=== PATIENT | female | born 1985 | race Caucasian/White ===

== ENCOUNTER 2023-06-19 11:02 | Outpatient (REF) | payer MEDICAID, OTHER, SELFPAY ==
[2023-06-19 13:10] LABS: Appearance Urine Clear; Color Urine Yellow; Glucose Urine UA Negative (Negative); Leukocyte Esterase Urine Moderate (2+) (Negative); MANUAL DIFF FLAG NO; Nitrite Urine Negative (Negative); Specific Gravity - Urine 1.015 (1.005-1.025); UMIC TRIGGER UA YES; Urine Blood Trace (Negative); Urine Ketones Negative (Negative); Urine Protein Negative (Neg-Trace)
[2023-06-19 13:17] LABS: Bacteria Urine None Seen (None Seen); Hyaline Casts Urine 0-2 /LPF (0-2)
[2023-06-19 13:35] LABS: Basophils Percent Auto 0.3 % (0-2); Eosinophils Absolute Auto 0.1 X10*3/uL (0.0-0.4); Eosinophils Percent Auto 0.5 % (0-4); Hematocrit 43.8 % (37.0-47.0); Hemoglobin 14.4 g/dl (12.0-16.0); Imm Gran Abs Auto 0.04 X10*3/uL (0.00-0.03); Imm Gran Pct Auto 0.4 % (0.0-0.4); Lymphocytes Absolute Auto 3.1 X10*3/uL (1.2-4.9); Lymphocytes Percent Auto 34.2 % (20-40); Mean Corpuscular HGB Conc 32.9 g/dl (31.0-35.0); Mean Corpuscular Hemoglobin 28.6 pg (27.0-33.0); Mean Corpuscular Volume 87.1 fL (80.0-98.0); Mean Platelet Volume 9.4 fL (9.4-12.3); Monocytes Absolute Auto 0.9 X10*3/uL (0.1-1.2); Monocytes Percent Auto 9.8 % (2-11); Neutrophils Percent Auto 54.8 % (45-73); Platelet Count 405 X10*3/uL (160-400); Red Blood Count 5.03 X10*6/uL (4.20-5.50); Red Cell Distribution Width 12.6 % (11.0-16.0); White Blood Count 9.2 X10*3/uL (4.8-10.8)
[2023-06-19 15:12] LABS: CT PCR NOT DETECTED (Not Detect.); NG PCR NOT DETECTED (Not Detect.)
[2023-06-19 15:21] LABS: Estimated Average Glucose 103 mg/dL; Hemoglobin A1c % 5.2 %
[2023-06-19 15:32] LABS: Microalbum/Creatinine Ratio Ur 16.5 ug/mg cr
[2023-06-20 02:15] LABS: Ferritin 43 ng/mL (10-250); TSH reflex Free T4 0.79 uIU/mL (0.32-4.0)
[2023-06-20 02:16] LABS: Anion Gap 12 (12-20)
[2023-06-20 02:21] LABS: Alanine Aminotransferase 13 U/L (0-31); Albumin Level 4.3 g/dL (3.5-5.0); Alkaline Phosphatase 81 U/L (39-117); Aspartate Amino Transferase 16 U/L (5-31); Bilirubin Total 0.7 mg/dL (0.0-1.0); Blood Urea Nitrogen 10 mg/dL (9-16); Calcium 8.8 mg/dL (8.4-10.2); Carbon Dioxide 25 mmol/L (22-29); Chloride 105 mmol/L (96-108); Cholesterol 225 mg/dL; Estimated Glomerular Filt Rate > 60; Glucose Random 95 mg/dL (60-115); HDL Cholesterol 48 mg/dL; Iron 152 mcg/dL (30-160); LDL Cholesterol Calculated 153 mg/dl; Percent Iron Saturation 46 % (15-50); Potassium 3.9 mmol/L (3.3-5.1); Sodium 138 mmol/L (135-145); Total Iron Binding Capacity 328 mcg/dL (228-428); Total Protein 7.8 g/dL (6.5-8.0); Triglycerides 121 mg/dL; Unsaturated Iron Binding 176 ug/dL
[2023-06-20 05:18] LABS: ~HepC Num1 0.08 S/CO (0.00-0.79); ~Hepatitis C Antibody Nonreactive (Nonreactive)
[2023-06-20 05:20] LABS: HBS Num1 0.03 mIU/mL (0-7.99); HBsAGNum1 0.34 S/CO (0.00-0.99); HIV AB/AG Nonreactive (Nonreactive); HIV Num 1 0.05 S/CO (0.00-0.99); Hepatitis B Core Antibody Nonreactive (Nonreactive); Hepatitis B Surface Antigen Negative (Negative); ~Hepatitis B Surface Antibody NONREACTIVE (Nonreactive)
[2023-06-21 08:16] LABS: Syphilis Screen Nonreactive (Nonreactive)
[2023-06-22 02:03] LABS: TS Negative Control Passed; TS Panel A 1; TS Panel B 1; TS Positive Control Passed; TSpotTB Negative (Negative)
== END 2023-06-19 11:03 | disposition home or self-care (01) ==
LOC: HO.HHCL 11:02
PROVIDERS: Visit Provider Student in an Organized Health Care Education/Training Program
DX: Z00.00 Encounter for general adult medical examination without abnormal findings (principal); Z11.4 Encounter for screening for human immunodeficiency virus [HIV]; Z11.3 Encounter for screening for infections with a predominantly sexual mode of transmission; Z11.1 Encounter for screening for respiratory tuberculosis
CPT/HCPCS: 0353U; 80053; 80061; 81001; 82043; 82728; 83036; 83540; 84443; 85025; 86481; 86704; 86706; 86780; 86803; 87340; 87389

== ENCOUNTER 2023-07-10 11:52 | Outpatient (REF) | payer MEDICAID, OTHER, SELFPAY ==
[2023-07-17 04:14] LABS: HPV mRNA E6/E7 rflx Not Detected (Not Detected)
== END 2023-07-10 11:53 | disposition home or self-care (01) ==
LOC: HO.HHCLNP 11:52
PROVIDERS: Visit Provider Advanced Practice Midwife
DX: Z12.4 Encounter for screening for malignant neoplasm of cervix (principal); Z11.51 Encounter for screening for human papillomavirus (HPV)
CPT/HCPCS: 87624; 88142

== ENCOUNTER 2023-07-11 10:32 | Outpatient (REF) | payer MEDICAID, SELFPAY | END 2023-07-11 10:33 | disposition home or self-care (01) | LOC: HO.HHCLNP 10:32 | PROVIDERS: Visit Provider Advanced Practice Midwife | DX: Z13.89 Encounter for screening for other disorder (principal) ==

== ENCOUNTER 2023-07-16 07:53 | Outpatient (REF) | payer MEDICAID, OTHER, SELFPAY ==
--- NOTE | ~2023-07-16 | CT_ITS ---
EXAMINATION: CT ANGIOGRAM ABDOMEN AND PELVIS CLINICAL INFORMATION: Right renal mass COMPARISON: None available. TECHNIQUE: Multiple axial images were obtained through the abdomen and pelvis following the administration of 80 mL of Omnipaque 350 intravenous contrast. Maximum intensity projection images were produced on the acquisition workstation under concurrent physician supervision and reviewed. This CT examination was performed using dose optimization techniques as appropriate, variously including the following: *Automated exposure control *Adjustment of mA and/or kV according to patient size (this includes techniques or standardized protocols for targeted exams where dose is matched to indication/reason for exam; i.e. extremities or head) *Use of iterative reconstruction technique DLP: 285 mGy-cm FINDINGS: The abdominal aorta is normal in caliber. The celiac artery is patent. The superior mesenteric and inferior mesenteric arteries are patent. Single right renal artery is patent. There is an early bifurcation. Single left renal artery is patent. The nephrograms are symmetric. The iliofemoral arteries are patent and normal in caliber. The lung bases are clear. The liver is normal in attenuation. No discrete mass or ductal dilatation. The gallbladder appears normal. There is no discrete pancreatic mass or ductal dilatation. The spleen appears normal. There is no adrenal mass. Symmetric nephrograms. Moderate bilateral hydroureteronephrosis with distended urinary bladder. No ureterolithiasis. No nephrolithiasis. No discrete renal mass. There is a focal area of cortical thinning in the lateral aspect of the mid to lower kidney which could which could be related to prior infection or trauma. The urinary bladder is distended. No discrete visible bladder mass. No bladder calculus. The uterus and adnexa are unremarkable. There is no adenopathy. The small bowel is normal in caliber. No mesenteric mass or fluid. The large bowel is normal in caliber. No inflammatory changes or focal bowel wall thickening. No significant abdominal wall hernia. No suspicious osseous lesions. CT/CT angio abdomen pelvis IMPRESSION: No discrete right renal mass is seen. There is focal scarring in the lateral aspect of the right kidney which may be posttraumatic or postinfectious. Moderate bilateral hydroureteronephrosis with distended urinary bladder. No discrete obstructing mass or calculus. No aortic or renal artery aneurysm. Fleischner guidelines were followed.
[2023-07-16] MEDS: iohexoL 350 MG/ML 100 ML INFUS..BTL IV (08:37)
== END 2023-07-16 07:54 | disposition home or self-care (01) ==
LOC: HO.CT 07:53
PROVIDERS: PCP Student in an Organized Health Care Education/Training Program; Visit Provider Student in an Organized Health Care Education/Training Program
DX: N28.89 Other specified disorders of kidney and ureter (principal)
CPT/HCPCS: 74174; Q9967

== ENCOUNTER 2023-07-22 07:38 | Outpatient (REF) | payer MEDICAID, OTHER, SELFPAY ==
--- NOTE | ~2023-07-22 | US_ITS ---
EXAMINATION: US THYROID CLINICAL INFORMATION: History of thyroid nodules. COMPARISON: None available. TECHNIQUE: Linear transducer estrada-scale and color Doppler examination with attention to the region of the thyroid. FINDINGS: SIZE: Measurements of the thyroid lobes and nodules are given in sagittal, anteroposterior and transverse dimensions respectively. Right Thyroid Lobe: 5.9 x 1.7 x 1.6 cm, volume 8.4 mL. Parenchyma: The gland echotexture is homogeneous. Thyroid vascularity is normal. Left Thyroid Lobe: 6.1 x 1.5 x 1.8 cm, volume 8.6 mL. Parenchyma: The gland echotexture is homogeneous. Thyroid vascularity is normal. Isthmus: 0.5 cm in maximum AP dimension. No focal thyroid nodule is seen. NODES: No lymphadenopathy is seen in the tissue surrounding the thyroid gland. US/US thyroid IMPRESSION: No suspicious thyroid nodules. ACR TI-RADS RECOMMENDATION REFERENCE: Ultrasound-guided fine-needle aspiration, followup ultrasound, no further follow up. * TR1 (0 point) and TR2 (2 points): No FNA or follow up. * TR3 (3 points): FNA if more than or equal to 2.5 cm in maximum dimension, followup ultrasound in 1, 3 and 5 years if 1.5 to 2.4 cm in maximum dimension. * TR4 (4-6 points): FNA if more than or equal to 1.5 cm in maximum dimension, followup ultrasound in 1, 2, 3 and 5 years if 1 to 1.4 cm in maximum dimension. * TR5 (more than or equal to 7 points): FNA if more than or equal to 1 cm in maximum dimension, followup ultrasound every year for 5 years if 0.5 to 0.9 cm in maximum dimension. * TR3, TR4 or TR5 nodules that are below the size threshold for followup receive no follow up.
--- NOTE | ~2023-07-22 | MM_ITS ---
EXAMINATION: MM SCREENING DIGITAL BREAST TOMOSYNTHESIS, BILATERAL CLINICAL INFORMATION: Screening. Asymptomatic. COMPARISON: Mammography: This is a baseline study. TECHNIQUE: Digital breast tomosynthesis is performed in both the craniocaudal and mediolateral oblique views along with computer-aided detection (CAD). Synthesized 2D images are generated from the tomosynthesis. FINDINGS: The breasts are heterogeneously dense, which may obscure small masses (ACR BI-RADS breast composition Category c). There are no significant masses, abnormal calcifications, or other abnormalities. MM/MM tomosynthesis screening BI IMPRESSION: No mammographic evidence of malignancy. ASSESSMENT: BI-RADS BI-RADS 1 - Negative RECOMMENDATION: Routine annual mammography screening. 1 year F/U This examination should not preclude the clinical evaluation of a suspicious palpable abnormality. This patient's information was entered into a reminder system with a target due date for their next mammogram.
== END 2023-07-22 07:39 | disposition home or self-care (01) ==
LOC: HO.MAMMO 07:38
PROVIDERS: PCP Student in an Organized Health Care Education/Training Program; Visit Provider Student in an Organized Health Care Education/Training Program
DX: Z12.31 Encounter for screening mammogram for malignant neoplasm of breast (principal); E04.1 Nontoxic single thyroid nodule
CPT/HCPCS: 76536; 77063; 77067

== ENCOUNTER → 2023-07-22 07:45 | Outpatient (BNV) | payer SELFPAY | PROVIDERS: PCP Student in an Organized Health Care Education/Training Program; Visit Provider Radiology Diagnostic Radiology | DX: Z12.31 Encounter for screening mammogram for malignant neoplasm of breast (principal) | CPT/HCPCS: 77063; 77067 ==

== ENCOUNTER 2023-07-31 13:52 | Outpatient (REF) | payer MEDICAID, OTHER, SELFPAY ==
--- NOTE | ~2023-07-31 | US_ITS ---
EXAMINATION: US PELVIS CLINICAL INFORMATION: Dysmenorrhea COMPARISON: None available. TECHNIQUE: Ultrasound of the pelvis is performed using both transabdominal and transvaginal transducers along with Doppler. Transvaginal imaging is performed due to inadequate visualization transabdominally. FINDINGS: Uterus: The uterus is anteverted and measures 9.3 x 3.6 x 5.3 cm. No discrete lesion The double wall endometrial thickness is 15 mm. The uterus is smooth in contour and has normal myometrial echogenicity. No visible fibroid. Nabothian cysts. Adnexa: Both ovaries are visualized. There is normal color flow to the adnexa. There is no ovarian torsion. There is no pelvic ascites or fluid collection. Both ovaries measure approximately 3 mL in volume. US/US pelvic and transvaginal IMPRESSION: Normal exam.
== END 2023-07-31 13:53 | disposition home or self-care (01) ==
LOC: HO.US 13:52
PROVIDERS: PCP Student in an Organized Health Care Education/Training Program; Visit Provider Advanced Practice Midwife
DX: N94.6 Dysmenorrhea, unspecified (principal)
CPT/HCPCS: 76830; 76856

== ENCOUNTER 2023-08-23 08:19 | Outpatient (REF) | payer MEDICAID, OTHER, SELFPAY ==
[2023-08-23 11:19] LABS: MANUAL DIFF FLAG NO
[2023-08-23 11:38] LABS: Basophils Percent Auto 0.4 % (0-2); Eosinophils Absolute Auto 0.1 X10*3/uL (0.0-0.4); Eosinophils Percent Auto 0.9 % (0-4); Hematocrit 41.6 % (37.0-47.0); Hemoglobin 13.9 g/dl (12.0-16.0); Imm Gran Abs Auto 0.02 X10*3/uL (0.00-0.03); Imm Gran Pct Auto 0.2 % (0.0-0.4); Lymphocytes Percent Auto 36.2 % (20-40); Mean Corpuscular HGB Conc 33.4 g/dl (31.0-35.0); Mean Corpuscular Hemoglobin 29.1 pg (27.0-33.0); Mean Platelet Volume 9.7 fL (9.4-12.3); Monocytes Absolute Auto 0.8 X10*3/uL (0.1-1.2); Monocytes Percent Auto 9.6 % (2-11); Neutrophils Absolute Auto 4.3 x10*3/uL (2.0-8.3); Neutrophils Percent Auto 52.7 % (45-73); Platelet Count 418 X10*3/uL (160-400); Red Blood Count 4.78 X10*6/uL (4.20-5.50); Red Cell Distribution Width 12.3 % (11.0-16.0); White Blood Count 8.2 X10*3/uL (4.8-10.8)
== END 2023-08-23 08:20 | disposition home or self-care (01) ==
LOC: HO.HHCL 08:19
PROVIDERS: Visit Provider Student in an Organized Health Care Education/Training Program
DX: N28.89 Other specified disorders of kidney and ureter (principal); Z13.0 Encounter for screening for diseases of the blood and blood-forming organs and certain disorders involving the immune mechanism
CPT/HCPCS: 36415; 85025

== ENCOUNTER 2023-09-16 19:36 | Emergency (ER) | payer MEDICAID, OTHER, SELFPAY ==
[2023-09-16 19:50] VITALS: BP 183/105; PULSE 86; RESP 16; TEMP 36.8; O2SAT 99; BMI 31.7
[2023-09-16 20:03] VITALS: BP 153/84; PULSE 86; RESP 17; TEMP 36.7; O2SAT 98
--- NOTE | 2023-09-16 20:59 | ED.DENTAL ---
HPI - Dental/Oral General Chief complaint: Dental/Oral Stated complaint: high bp, bleeding from tooth Time Seen by Provider: 09/16/23 20:38 Source: patient Mode of arrival: ambulatory Limitations: no limitations History of Present Illness HPI Narrative: Patient apparently had 2 teeth extraction earlier today since the patient with bleeding noticed to have high blood pressure on arrival 183/105 with no prior history of hypertension not taking any aspirin or any blood thinner, repeat blood pressure was 153/84 Related Data Allergies Allergy/AdvReac Type Severity Reaction Status Date / Time No Known Allergies Allergy Verified 09/16/23 21:02 Review of Systems Review of Systems: Yes all other systems are reviewed and are negative [facility] Social History Social History Advance Directives: No Advance Directives Information Provided: No Physical Exam Vital Signs: Vital Signs: Last Vital Signs Temp 98.0 F 09/16/23 20:03 Pulse 83 09/16/23 22:12 Resp 18 09/16/23 22:12 BP 153/89 H 09/16/23 22:12 Pulse Ox 99 09/16/23 22:12 O2 Del Method Room Air 09/16/23 20:03 BMI result Body Mass Index 31.7 Appearance: Alert. Oriented X3. No acute distress. ENT: Pharynx normal. Oral Mucosa moist Neck: Normal inspection. Neck supple. CVS: Normal heart rate and rhythm. Pulses normal. Respiratory: No respiratory distress. Equal air entry bilateral, Abdomen: Soft and nontender. Bowel sounds are present, Skin: Skin warm and dry. Normal skin color. Normal skin turgor. Neuro: Oriented X 3. HEENT: Teeth image: 1. Extracted tooth with active gum bleeding Medications Administered Discontinued Medications Generic Name Dose Route Start Last Admin Trade Name Freq PRN Reason Stop Dose Admin Tranexamic Acid 500 mg 09/16/23 21:02 09/16/23 22:14 Tranexamic Acid 1,000 Mg/10 Ml Vial INTRANASAL 09/16/23 21:03 500 mg ONCE ONE Administration Medical Decision Making Medical Decision Making [facility] Narrative: Patient with bleeding from the gum after post extraction bleeding stopped after using TXA Discharge Plan Discharge Clinical Impression: Gums, bleeding Patient Disposition: Home, Self-Care Instructions: Tooth Extraction (DC) Additional Instructions: Local care as advised Use cold water/ice Or use tea bags Follow up with your dentist Interventions: ED Discharge Assessment Last Done: 09/16/23 22:15 Discharge Date/Time: 09/16/23 22:15
[2023-09-16 22:12] VITALS: BP 153/89; PULSE 83; RESP 18; O2SAT 99
[2023-09-16] MEDS: Tranexamic Acid 1,000 MG/10 ML VIAL 500 MG INTRANASAL (22:14)
--- NOTE | 2023-09-16 22:14 | PC.NURSE ---
med given by Provider
== END 2023-09-16 22:15 | disposition home or self-care (01) ==
PROVIDERS: Emergency Provider Internal Medicine
DX: K91.840 Postprocedural hemorrhage of a digestive system organ or structure following a digestive system procedure (principal)
CPT/HCPCS: 99283; 99284

== ENCOUNTER 2024-01-24 09:25 | Outpatient (REF) | payer MEDICAID, OTHER, SELFPAY ==
[2024-01-24 11:25] LABS: MANUAL DIFF FLAG NO
[2024-01-24 11:43] LABS: Basophils Percent Auto 0.4 % (0-2); Eosinophils Absolute Auto 0.1 X10*3/uL (0.0-0.4); Eosinophils Percent Auto 1.3 % (0-4); Hemoglobin 14.3 g/dl (12.0-16.0); Imm Gran Abs Auto 0.03 X10*3/uL (0.00-0.03); Imm Gran Pct Auto 0.3 % (0.0-0.4); Lymphocytes Absolute Auto 3.4 X10*3/uL (1.2-4.9); Lymphocytes Percent Auto 35.5 % (20-40); Mean Corpuscular HGB Conc 33.3 g/dl (31.0-35.0); Mean Corpuscular Hemoglobin 29.2 pg (27.0-33.0); Mean Corpuscular Volume 87.9 fL (80.0-98.0); Mean Platelet Volume 9.3 fL (9.4-12.3); Monocytes Percent Auto 10.3 % (2-11); Neutrophils Percent Auto 52.2 % (45-73); Platelet Count 401 X10*3/uL (160-400); Red Blood Count 4.89 X10*6/uL (4.20-5.50); Red Cell Distribution Width 12.8 % (11.0-16.0); White Blood Count 9.5 X10*3/uL (4.8-10.8)
[2024-01-24 12:09] LABS: Alanine Aminotransferase 13 U/L (0-31); Albumin Level 4.2 g/dL (3.5-5.0); Alkaline Phosphatase 81 U/L (39-117); Anion Gap 13 (12-20); Aspartate Amino Transferase 15 U/L (5-31); Bilirubin Total 0.4 mg/dL (0.0-1.0); Blood Urea Nitrogen 13 mg/dL (9-16); Calcium 9.3 mg/dL (8.4-10.2); Carbon Dioxide 26 mmol/L (22-29); Chloride 107 mmol/L (96-108); Cholesterol 222 mg/dL (<200); Estimated Glomerular Filt Rate > 60; Glucose Random 99 mg/dL (60-115); HDL Cholesterol 50 mg/dL (>40); LDL Cholesterol Calculated 147 mg/dL (<100); Potassium 4.5 mmol/L (3.3-5.1); Sodium 141 mmol/L (135-145); Total Protein 7.8 g/dL (6.5-8.0); Triglycerides 127 mg/dL (<150)
[2024-01-24 12:11] LABS: TSH reflex Free T4 0.58 uIU/mL (0.32-4.0); Vitamin D 25-OH Total 36.4 ng/mL (>30)
== END 2024-01-24 09:26 | disposition home or self-care (01) ==
LOC: HO.HHCL 09:25
PROVIDERS: Visit Provider Student in an Organized Health Care Education/Training Program
DX: L65.9 Nonscarring hair loss, unspecified (principal); D75.839 Thrombocytosis, unspecified; E78.5 Hyperlipidemia, unspecified
CPT/HCPCS: 36415; 80053; 80061; 82306; 84443; 85025

== ENCOUNTER 2024-07-28 07:10 | Outpatient (REF) | payer MEDICAID, OTHER, SELFPAY ==
--- NOTE | ~2024-07-28 | MM_ITS ---
EXAMINATION: MM SCREENING DIGITAL BREAST TOMOSYNTHESIS, BILATERAL CLINICAL INFORMATION: Screening. Asymptomatic. COMPARISON: Mammography: Comparison is made with available priors TECHNIQUE: Digital breast tomosynthesis is performed in both the craniocaudal and mediolateral oblique views along with computer-aided detection (CAD). Synthesized 2D images are generated from the tomosynthesis. FINDINGS: The breasts are heterogeneously dense, which may obscure small masses (ACR BI-RADS breast composition Category c). There are no significant masses, abnormal calcifications, or other abnormalities. MM/MM tomosynthesis screening BI IMPRESSION: No mammographic evidence of malignancy. ASSESSMENT: BI-RADS BI-RADS 1 - Negative RECOMMENDATION: Routine annual mammography screening. 1 year F/U This examination should not preclude the clinical evaluation of a suspicious palpable abnormality. This patient's information was entered into a reminder system with a target due date for their next mammogram. Electronically signed by: Akosua Israel DO 08/21/2024 12:45 PM EDT
== END 2024-07-28 07:11 | disposition home or self-care (01) ==
LOC: HO.MAMMO 07:10
PROVIDERS: PCP Student in an Organized Health Care Education/Training Program; Visit Provider Student in an Organized Health Care Education/Training Program
DX: Z12.31 Encounter for screening mammogram for malignant neoplasm of breast (principal)
CPT/HCPCS: 77063; 77067

== ENCOUNTER → 2024-07-28 07:30 | Outpatient (BNV) | payer SELFPAY | PROVIDERS: PCP Student in an Organized Health Care Education/Training Program; Visit Provider Internal Medicine | DX: Z12.31 Encounter for screening mammogram for malignant neoplasm of breast (principal) | CPT/HCPCS: 77063; 77067 ==

== ENCOUNTER 2024-09-29 08:00 | Outpatient (REF) | payer MEDICAID, SELFPAY ==
[2024-09-29 11:52] LABS: Hematocrit 42.1 % (37.0-47.0); Mean Corpuscular HGB Conc 33.3 g/dl (31.0-35.0); Mean Corpuscular Hemoglobin 29.9 pg (27.0-33.0); Mean Corpuscular Volume 89.8 fL (80.0-98.0); Mean Platelet Volume 9.6 fL (9.4-12.3); Platelet Count 367 X10*3/uL (160-400); Red Blood Count 4.69 X10*6/uL (4.20-5.50); Red Cell Distribution Width 12.7 % (11.0-16.0); White Blood Count 7.5 X10*3/uL (4.8-10.8)
[2024-09-29 12:14] LABS: Estimated Average Glucose 108 mg/dL; Hemoglobin A1C 126.9235 umol/L; Hemoglobin A1c % 5.4 % (<6.0); Total Hemoglobin (HGBA1C) 3611.6768 umol/L
[2024-09-29 12:46] LABS: Creatinine Urine 57.49 mg/dL; Microalbum/Creatinine Ratio Ur 13.9 ug/mg cr (<30)
[2024-09-29 12:53] LABS: Syphilis Screen Nonreactive (Nonreactive)
[2024-09-29 12:54] LABS: HBS Num1 2.61 mIU/mL (0-7.99); HBc Num1 0.14 S/CO (0.00-0.79); HBsAGNum1 0.31 S/CO (0.00-0.99); HIV AB/AG Nonreactive (Nonreactive); HIV Num 1 0.05 S/CO (0.00-0.99); Hepatitis B Core Antibody Nonreactive (Nonreactive); Hepatitis B Surface Antigen Negative (Negative); ~HepC Num1 0.11 S/CO (0.00-0.79); ~Hepatitis B Surface Antibody NONREACTIVE (Nonreactive); ~Hepatitis C Antibody Nonreactive (Nonreactive)
[2024-09-29 12:59] LABS: Alanine Aminotransferase 13 U/L (0-31); Albumin Level 4.2 g/dL (3.5-5.0); Alkaline Phosphatase 60 U/L (39-117); Anion Gap 11 (12-20); Aspartate Amino Transferase 26 U/L (5-31); Bilirubin Total 0.8 mg/dL (0.0-1.0); Blood Urea Nitrogen 14 mg/dL (9-16); Calcium 9.1 mg/dL (8.4-10.2); Carbon Dioxide 25 mmol/L (22-29); Chloride 108 mmol/L (96-108); Cholesterol 232 mg/dL (<200); Estimated Glomerular Filt Rate > 60; Glucose Random 94 mg/dL (60-115); HDL Cholesterol 59 mg/dL (>40); LDL Cholesterol Calculated 160 mg/dL (<100); Potassium 4.2 mmol/L (3.3-5.1); Sodium 140 mmol/L (135-145); Total Protein 7.6 g/dL (6.5-8.0); Triglycerides 66 mg/dL (<150)
[2024-09-29 13:02] LABS: TSH reflex Free T4 0.74 uIU/mL (0.32-4.0)
[2024-09-29 14:00] LABS: CT PCR NOT DETECTED (Not Detect.); NG PCR NOT DETECTED (Not Detect.)
== END 2024-09-29 08:01 | disposition home or self-care (01) ==
LOC: HO.HHCL 08:00
PROVIDERS: Visit Provider Student in an Organized Health Care Education/Training Program
DX: Z00.00 Encounter for general adult medical examination without abnormal findings (principal)
CPT/HCPCS: 36415; 80053; 80061; 82043; 82570; 83036; 84443; 85027; 86704; 86706; 86780; 86803; 87340; 87389; 87491; 87591

== ENCOUNTER 2025-04-09 12:35 | Outpatient (REF) | payer MEDICAID, SELFPAY ==
--- OUTSIDE RECORDS SUMMARY | 2025-04-09 12:37 | XMS_ITS | Encounter Summary ---
Author Organization [facility] Address [address] [place] [address] Care Team Providers Care Barrel Rifler Button Name Role Phone Shantelle Cunningham Primary Care Provider [phone] Encounter Details Date Type Department Care Team (Late Contact Info) Description 09/05/2023 Orders Only [facility] [address] [place] [address] Guido Watson MD [address] [place] [address] Social History Tobacco Use Types Packs/Day Years Used Date Smoking Tobacco: Never Assessed Comments Unknown Sex and Gender Information Value Date Recorded Sex Assigned at Female 09/11/2023 8:40 AM EDT Legal Sex Female 2:46 PM EDT Gender Identity Female 09/11/2023 8:40 AM EDT Sexual Orientation Other 09/11/2023 8: 40 AM EDT documented as of this encounter Plan of Treatment Upcoming Encounters Date Type Department Care Team (Late Contact Info) Description 06/16/2025 3:30 PM EDT Follow-Up [facility] [address] [place] [address] Log Data Technician: Mona Edwards PA [address] [place] [id number] documented as of this encounter Visit Diagnoses Not on filedocumented in this encounter Care Teams Barrel Rifler Button Relationship Specialty Start Date End Date Shantelle Cunningham PCP - General 07/18/23 documented as of this encounter
--- OUTSIDE RECORDS SUMMARY | 2025-04-09 12:37 | XMS_ITS | Clinical Summary ---
Author Organization [employer] Address [address] [facility] [address] [place] [address] Care Team Providers Care Stonemason Apprentice Name Role Phone Shantelle Cunningham MD Primary Care Pro vider Allergies No known active allergies Medications biotin 10 MG tabletIndicati ons:Hair loss Take 1 tablet (10 mg) by mouth Once per day. 90 tablet 1 04/09/20 25 Active omega-3 1000 MG capsule capsule Take 1 capsule (1,000 mg) by mouth 2 times daily. 180 capsule 1 04/09/20 25 026 Active biotin 3 MG tablet Take 1 tablet (3 mg) by mouth in the morning. 90 tablet 12/23/19 24 025 Discontinued(Ot her) omega-3 1000 MG capsule capsule Take 1 capsule (1,000 mg) by mouth 2 times daily. 180 capsule 1 10/06/20 24 025 Discontinued(Re order (will not trigger notification to Pharmacy)) Active Problems Problem Noted Date Diagnosed Date Overweight 08/04/2024 Skin lesions 08/04/2024 Hypertension 12/24/2023 Hydroureteronephrosis 12/24/2023 Hyperlipidemia 07/15/2023 Assessment & Plan (08/28/2023 8:13 PM EDT): 06/2023 Total ch 225, trig 121, LDL 153, HDL 48 ASCVD 1.3 % ( no indication x statins) -life style changes advised -referred to correctional security officer---has apt 09/30/2023 -repeat fasting lipids in 6 mo and chem-aprox 01/2024 Assessment & Plan (07/15/2023 7:04 PM EDT): 06/2023 Total ch 225, trig 121, LDL 153, HDL 48 ASCVD 1.3 % ( no indication x statins) -life style changes advised -referred today to correctional security officer -repeat fasting lipids in 6 mo and chem-aprox 01/2024 Health care maintenance 06/17/2023 Assessment & Plan (08/28/2023 8:12 PM EDT): -Quantiferon 06/2023 Neg -pap smear 07/2023 Neg/HPV neg -MM 07/2023 : The breasts are heterogeneously dense, which may obscure small masses composition Category c). BI-RADS BI-RADS 1 - Negative .Mauricio Godfrey life time risk which is 10.70 % so no indication for further testing -vaccines: covid 19 never and refusing , tdap offer and refusing, hep B not immune-refusing vaccine offered today, refusing flu vaccine ---- -noted 9<---06/2023 CBC w platelets slight elevated to 418<--- 405 w normal hb and normal iron panel -will repeat CBC in 3 to 6 months -EGD 10/2021:chronic non atrophic gastritis possible H pylori associated --no path report but pt reports was told not to have h pylori on that test -denies upper GI symptoms -ophthalmology referral already-pd to get a call for apt Assessment & Plan (07/15/2023 7:00 PM EDT): -Quantiferon 06/2023 Neg -pap smear 03/2022 Neg per pt in [facility] -referred to Vincenzo gustafson and repeated pap smear in 07/2023 -Pd to get result -MM: never-referred already -reports apt x next week-will f result here in 6 weeks -vaccines: covid 19 never and refusing , tdap offer and refusing, hep B not immune-refusing vaccine offered today ---- -noted 06/2023 CBC w platelets slight elevated to 405 w normal hb and normal iron panel -will repeat CBC in 5 weeks -ordered today and will f result in 6 weeks -EGD 10/2021:chronic non atrophic gastritis possible H pylori associated --no path report but pt reports was told not to have h pylori on that test -denies upper GI symptoms -ophthalmology referral already-pd to get a call for apt Assessment & Plan (06/17/2023 10:39 PM EDT): -Quantiferon referred today ( hx of PPD -) -pap smear 03/2022 Neg per pt in [facility] -referred to Vincenzo ReederMM: never-referred today -vaccines: covid 19 never and refusing , tdap offer and refusing -labs x annual exam -will RTC in fasting -pt agreed to have STI testing including HIV to have for baseline ---- -EGD 10/2021:chronic non atrophic gastritis possible H pylori associated ??? --no path report --will check w pt if tested + at next visit -ophthalmology referral Resolved Problems Problem Noted Date Diagnosed Date Resolved Date Hair loss 12/24/2023 08/04/2024 Right renal mass 06/17/2023 12/24/2023 Assessment & Plan (08/28/2023 8:16 PM EDT): -From her records: Pt brought records translated in [place]og[place]ese from [place] -admitted from 10/25 to 11/10/20[facility] -right renal cancer stage I and anemia. 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 Hx of urolithiasis s/p lithotripsy in 2017 Stone of oxalate ---on cystone -US 10/2021: liquid mass detected up to 35x25 mm with signs of contents and isoechoic to renal parenchyma -CT abd/pelvis w IV contrast 09/2021: A right cystic renal mass of 30 x 27 mm is detected in the mid segment of kidney. 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 No discrete mass or ductal dilatation. The gallbladder appears normal. There is no discrete pancreatic mass or ductal dilatation. The spleen appears normal. There is no adrenal mass. Symmetric nephrograms. Moderate bilateral hydroureteronephrosis with distended urinary bladder. No ureterolithiasis. No nephrolithiasis. No discrete renal mass. There is a focal area of cortical thinning in the lateral aspect of the mid to lower kidney which could which could be related to prior infection or trauma. The urinary bladder is distended. No discrete visible bladder mass. No bladder calculus. There is no adenopathy. No discrete right renal mass is seen. There is focal scarring in the lateral aspect of the right kidney which may be posttraumatic or postinfectious. Moderate bilateral hydroureteronephrosis with distended urinary bladder. No discrete obstructing mass or calculus. No aortic or renal artery aneurysm. -referred to urologist to f hematuria and hx of renal ca --gave letter info for apt to call and schedule apt-pt will discuss w urologist about natural products from [facility] x nephrolitiasis hx ( Flaxseed oil 1200 mg daily, alpha+CRS tab daily, cystone 60 2 tab daily) that brings from [employer]. -pt reports not able to schedule apt w urologist at [facility]---[place] has sent twice referral but apparently not receiving referral ----I request today to microbial specialist to send referral again Assessment & Plan (07/15/2023 7:05 PM EDT): -From her records: Pt brought records translated in [place]ese from [place] -admitted from 10/25 to 11/10/2021 in [facility] -right renal cancer stage I and anemia. 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 Hx of urolithiasis s/p lithotripsy in 2017 Stone of oxalate ---on cystone -US 10/2021: liquid mass detected up to 35x25 mm with signs of contents and isoechoic to renal parenchyma -CT abd/pelvis w IV contrast 09/2021: A right cystic renal mass of 30 x 27 mm is detected in the mid segment of kidney. 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 -referred for CT abd/pelvis w contrast -states has apt tomorrow -will f result at her next apt here in 6 weeks Assessment & Plan (06/17/2023 10:29 PM EDT): -From her records: Pt brought records translated in [place] from [place] -admitted from 10/25 to 11/10/2021 in [facility] -right renal cancer stage I and anemia. 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 Hx of urolithiasis s/p lithotripsy in 2017 Stone of oxalate ---on cystone and kanefron meds -US 10/2021: liquid mass detected up to 35x25 mm with signs of contents and isoechoic to renal parenchyma -CT abd/pelvis w IV contrast 09/2021: A right cystic renal mass of 30 x 27 mm is detected in the mid segment of kidney. 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 -referred today to urologist -referred for CT abd/pelvis w contrast --if abnormal cr -will advise pt to hold on test -UA to r/o hematuria Obese 06/17/2023 08/04/2024 Assessment & Plan (08/28/2023 8:10 PM EDT): BMI 30.31 -Advised pt to improve diet and exercise,discussed healthy life style -referred to correctional security officer to 09/30/2023 Assessment & Plan (07/15/2023 6:54 PM EDT): BMI 30.31 -Advised pt to improve diet and exercise,discussed healthy life style -referred today to correctional security officer Assessment & Plan (06/17/2023 10:27 PM EDT): Advised pt to improve diet and exercise,discussed healthy life style -will discuss correctional security officer referral at next apt Thyroid nodule 06/17/2023 12/24/2023 Overview (12/24/2023): -thyroid nodules hx -thyroid US 07/2023: Normal Assessment & Plan (08/28/2023 8:14 PM EDT): -thyroid nodules hx -thyroid US 07/2023: Normal Assessment & Plan (07/15/2023 6:55 PM EDT): -thyroid nodules hx -referred already x thyroid US --has apt per pt x next week- will f result here in 6 weeks Assessment & Plan (06/17/2023 10:35 PM EDT): -thyroid nodules hx -referred today x thyroid US Vertigo 06/17/2023 12/24/2023 Overview (12/24/2023): Pt w symptoms of BPV-improved -advised x home head exercises -meclizine prn Assessment & Plan (08/28/2023 8:14 PM EDT): Pt w symptoms of BPV-improved -advised x home head exercises -meclizine prn Assessment & Plan (07/15/2023 6:57 PM EDT): Pt w symptoms of BPV-improved -advised x home head exercises -meclizine prn Assessment & Plan (06/17/2023 10:38 PM EDT): Pt w symptoms of BPV -advised x home head exercises -meclizine prn Chronic lower back pain 06/17/202312/03 Overview (12/24/2023): Resolved -reported as chronic lower back pain w no alarming features -referred to PT-pd to schedule apt -never=--resolve w,yoga -tylenol prn -will continue to f if no improvement w PT will refer x lumbar XR -pt will inform me if symptoms again Assessment & Plan (08/28/2023 8:13 PM EDT): Pt w chronic lower back pain w no alarming features -referred to PT-pd to schedule apt -tylenol prn -will continue to f if no improvement w PT will refer x lumbar XR Assessment & Plan (07/15/2023 6:57 PM EDT): Pt w chronic lower back pain w no alarming features -referred to PT-gave letter for pt to schedule apt -tylenol prn -will continue to f if no improvement w PT will refer x lumbar XR Assessment & Plan (06/17/2023 10:39 PM EDT): Pt w chronic lower back pain w no alarming features -referred today to PT -tylenol prn -will continue to f if no improvement w PT will refer x lumbar XR Encounters Date Type Department Care Team Description 04/09/2025 11:15 AM EDT Office Visit [address] [id number] Shantelle Cunningham MD Hyperlipidemia, unspecified hyperlipidemia type (Primary Dx); Dietary counseling; Exercise counseling; Hair loss 04/09/2025 Travel 04/08/[address] [address] Shantelle Cunningham MD chartprep 04/05/[address] [phone] Shantelle Cunningham MD Lab Orders 02/11/[address] [phone] Shantelle Cunningham MD May recall from Last 3 Months Social History Tobacco Use Types Packs/Day Years Used Date Smoking Tobacco: Never Passive Smoke Exposure: Never Smokeless Tobacco: Never Tobacco Cessation:Counseling Given: Not Answered Alcohol Use Standard Drinks/Week Comments Not Currently 0 (1 standard drink = 0.6 oz pur e alcohol) social Depression Answer Date Recorded Patient Health Questionnaire-9 Score 0 08/04/2024 Patient Health Questionnaire-9 Score 0 08/04/2024 Last PHQ-9: Questionnaire Data Not on file 0 08/04/2024 Housing Stability Answer Date Recorded What is your housing situation today? I have woo barb 08/04/[address] you li ve. Do you have problems with any of the following? None of the above 08/04/2024 Food Insecurity Answer Date Recorded Within the past 12 months, y ou worried that your food would run out before you got money to buy more: Never True 08/04/2024 Within the past 12 months,th e food you bought just didn't last and you didn't have enough money to get more: Never True 01/2024 Transportation Answer Date Recorded In the past 12 months, has l ack of transportation kept you from medical appts, meetings, work or from getting things needed for daily living? No 08/04/2024 Utilities Answer Date Recorded In the past 12 months, has t he electric, gas, oil or water company threatened to shut off services in your home? No 08/04/2024 Depression Answer Date Recorded Patient Health Questionnaire-2 Score 0 08/04/2024 Internet Access Answer Date Recorded Internet Access Q1 Yes 10/06/2024 Internet Access Q2 Not on file 10/06/2024 Comments No Sex and Gender Information Value Date Recorded Sex Assigned at Female 04/25/2023 12:11 PM EDT Legal Sex Female 11:55 AM EDT Gender Identity Female 04/25/2023 12:11 PM EDT Sexual Orientation Straight 06/17/2023 2: 10 PM EDT Last Filed Vital Signs Vital Sign Reading Time Taken Comments Blood Pressure 138/88 04/09/2025 11:19 AM EDT Pulse 78 04/09/2025 11:19 AM EDT Temperature 36.1 ??C (96.9 ??F) 04/09/2025 1 1:19 AM EDT Respiratory Rate 20 04/09/2025 11:1 9 AM EDT Oxygen Saturation 99% 04/09/2025 11: 19 AM EDT Inhaled Oxygen Concentration - - Weight 81.1 kg (178 lb 12.8 oz) 025 11:19 AM EDT Height 167 cm (5' 5.75 ) 04/09/2025 11: 19 AM EDT Body Mass Index 29.08 04/09/2025 11:19 AM EDT Plan of Treatment Health Maintenance Due Date Last Done Comments Dental Oral Exam 1983 Family Planning (PISQ) 1998 DTaP/Tdap/Td Vaccines (1 - Tdap) 2002 Hepatitis B Vaccines (1 of 3 - 19+ 3-dose series) 2002 Dental Prophylaxis 02/18/2024 08/19/2023 COVID-19 Vaccine (1 - 2023-2 5 season) 2024 Influenza Vaccine (#1) 2024 Dental X-Ray: Bitewings 08/20/2024 08/19/2023 Depression Screening 08/04/2025 08/04/2024, 08/04/2024 SDOH Screening 10/06/2025 10/06/2024 Alcohol/Substance Use Screening 04/09/2026 04/09/2025 Tobacco Screening 04/09/2026 04/09/2025 Pap Smear 07/10/2026 07/10/2023 Mammogram 07/28/2026 07/28/2024, 07/22/2023 Dental X-Ray: Full Mouth 08/20/2026 08/19/2023 Cervical Cancer Screening 07/10/2028 HPV/Cotest 07/10/2028 07/10/2023 Lipid Panel 09/29/2029 09/29/2024, 01/24/2024 Zoster Vaccines (1 of 2) 2033 RSV Patients and Patients Aged 60 years or older (1 - 1-dose 75+ series) 2058 HIV Screening Completed 09/29/2024 Hepatitis C Screening Completed 09/29/2024 HIB Vaccines Aged Out No longer eligi ble based on patient's age to complete this topic HPV Vaccines Aged Out No longer eligi ble based on patient's age to complete this topic Hepatitis A Vaccines Aged Out No long er eligible based on patient's age to complete this topic IPV Vaccines Aged Out No longer eligi ble based on patient's age to complete this topic Meningococcal Vaccine Aged Out No jolynn nannette eligible based on patient's age to complete this topic Pneumococcal Vaccine: Pediatrics (0 to 5 Years) and At-Risk Patients (6 to 49) Years) Aged Out No longer eligible b ased on patient's age to complete this topic RSV under 20 months Aged Out No longe r eligible based on patient's age to complete this topic Rotavirus Vaccines Aged Out No longer eligible based on patient's age to complete this topic Procedures Procedure Name Priority Date/Time Associated Diagnosis Comments HEPATITIS C AB W/REFL TO HCV RNA, QN, PCR Routine 09/29/2024 8:06 AM EDT Annual physical exam HIV 1/2 ANTIGEN/ANTIBODY, FOURTH GENERATION W/RFL Routine 09/29/2024 8:06 AM EDT Annual physical exam LIPID PANEL, STANDARD Routine 09/29/2024 8:06 AM EDT Annual physical exam BI MAMMOGRAM SCREENING TOMOSYNTHESIS BILATERAL Routine 07/28/2024 7:20 AM EDT PROPHYLAXIS - ADULT Routine 08/19/2023 1 1:00 AM EDT INTRAORAL - COMPLETE SERIES OF RADIOGRAPHIC IMAGES Routine 08/19/2023 11:00 AM EDT HPV MRNA E6/E7 REFLEX TO HPV 16, 18/45 Routine 07/10/2023 11:20 AM EDT PAP SMEAR Routine 07/10/2023 from Last 3 Months or Most Recently Relevant to Health Maintenance Results * Hepatitis C Antibody with Reflex to HCV, RNA, Quantitative, Real-Time PCR (09/29/2024 8:06 AM EDT) Hepatitis C Antibody Nonreactive Nonreactive [facility] Comment:Antibodies to HCV no t detected; does not exclude early acuteHCV infection. Blood Venous blood specimen / Unknown 09/29/2024 8:06 AM EDT 09/29/2024 11:33 AM EDT us Shantelle Mejia MD LAB BLOOD ORDERAB LES Final Result [facility] [address] [place] [phone] * HIV-1/2 Antigen and Antibodies, Fourth Generation, with Reflexes (09/29/2024 8:06 AM EDT) HIV AB/AG Nonreactive Nonreactive [facility] Comment:HIV-1 p24 Ag and/or HIV-1/HIV-2 Ab not detected.A test result that is nonreactive does not exclude thepossibility of exposure to or infection with HIV-1 and/orHIV-2. Nonreactive results in this assay for individualswith prior exposure to HIV-1 and/or HIV-2 may be due toantigen and antibody levels that are below the limit ofdetection of this assay.The [facility] HIV Ag/Ab Combo assay result andsupplemental assay results should be interpreted inconjunction with the patient's clinical presentation,history and other laboratory results. If the results areinconsistent with clinical evidence, additional testing issuggested to confirm the result. Blood Venous blood specimen / Unknown 09/29/2024 8:06 AM EDT 09/29/2024 11:33 AM EDT us Shantelle Mejia MD LAB BLOOD ORDERAB LES Final Result Performing Organization Address City/[facility]/ZIP Co de Phone Number [facility] [address] [place] [phone] [phone] * (ABNORMAL) Lipid Panel, Standard (09/29/2024 8:06 AM EDT) Triglycerides 66 <150 mg/dL [facility] Comment:Desirable Triglyceri de: less than 150 mg/dLBorderline High Triglyceride 150-199 mg/dLHigh Triglyceride: 200-499 mg/dLVery High Triglyceride: greater than or equal to 5OO mg/dL Cholesterol 232(H) <200 mg/dL [facility] Comment:Desirable Cholestero l: less than 200 mg/dLBorderline High Cholesterol: 200-239 mg/dLHigh Cholesterol: greater than 239 mg/dL LDL Cholesterol Calculated 160(H) <100 mg/dL [facility] Comment:Desirable LDL: less than 100 mg/dLNear Optimal/Above Optimal LDL: 110- 129 mg/dLBorderline High LDL: 130-159 mg/dLHigh LDL: 160-189 mg/dLVery High LDL: greater than or equal to 190 mg/dL HDL Cholesterol 59 >40 mg/dL [facility] Comment:Desirable HDL: great er than 40 mg/dL Note: This HDL assay may give artificially low results in patients with liver disease. Blood Venous blood specimen / Unknown 09/29/2024 8:06 AM EDT 09/29/2024 11:33 AM EDT Shantelle Mejia MD LAB BLOOD ORDERAB LES Final Result [facility] [address] [place] [phone] [phone] * BI Mammogram Screening Tomosynthesis Bilateral (07/28/2024 7:20 AM EDT) Anatomical Region Laterality Modality Breast Bilateral Mammography 07/28/2024 7:20 AM EDT Narrative 08/21/2024 12:48 PM EDT ? [facility] ? [address] ?[place] [phone] ? Mammography Report ? Signed ? Patient: Skazka,Cynthia ?MR#: [id number] ?? [id number] ? : 1985 ?Acct:[id number] ? Age/Sex: 39 / F ?ADM Date: 07/28/24 ? Loc: HO.MAMMO ? Attending Dr: Shantelle Mejia MD ? Ordering Physician: Shantelle Cunningham MD ?Re ?? sults: 1Negative ? Date of Service: 07/28/24 ?Follow Up: 1 Year From Orig ?? inal Mammogram ? Procedure(s): MM tomosynthesis screening BI ?? Accession Number(s): [id number] ? cc: Shantelle Cunningham MD ? EXAMINATION: ?? MM SCREENING DIGITAL BREAST TOMOSYNTHESIS, BILATERAL ? CLINICAL INFORMATION: ? Screening. Asymptomatic. ? COMPARISON: ?? Mammography: Comparison is made with available priors ? TECHNIQUE: ?? Digital breast tomosynthesis is performed in both the craniocaudal and ?? mediolateral oblique views along with computer-aided detection (CAD). ? Synthesized 2D images are generated from the tomosynthesis. ? FINDINGS: ?? The breasts are heterogeneously dense, which may obscure small masses ?? (ACR BI-RADS breast composition Category c). ? There are no significant masses, abnormal calcifications, or other ?? abnormalities. ? MM/MM tomosynthesis screening BI ?? IMPRESSION: ?? No mammographic evidence of malignancy. ? ASSESSMENT: ? BI-RADS BI-RADS 1 - Negative ? RECOMMENDATION: ?? Routine annual mammography screening. ? 1 year F/U ? This examination should not preclude the clinical evaluation of a ?? suspicious palpable abnormality. ? This patient's information was entered into a reminder system with a ?? target due date for their next mammogram. ? Electronically signed by: ??Akosua Israel DO ??08/21/2024 12:45 PM EDT ? Dictated By: ?Akosua Israel DO ? Signed By: ?<Electronically signed by Akosua Israel, DO in OV> ? 08/21/24 1245 ? DD/ 0720 ? TD/TT: 07/28/24 0730 ? Back Digger Operator: ? Procedure Note Donaraceli, Image - 08/21/2024 [facility] [address] [place] [address] Mammography Report Signed Patient: Cynthia CarrenoMR#: [id number] : 1985Acct:[id number] Age/Sex: 39 / FADM Date: 07/28/24 Loc: HO.MAMMO Attending Dr: Shantelle Mejia MD Ordering Physician: Shantelle Cunningham sults: 1Negative Date of Service: 07/28/24Follow Up: 1 Year From Orig inal Mammogram Procedure(s): MM tomosynthesis screening BI Accession Number(s): [id number] cc: Shantelle Cunningham MD EXAMINATION: MM SCREENING DIGITAL BREAST TOMOSYNTHESIS, BILATERAL CLINICAL INFORMATION: Screening. Asymptomatic. COMPARISON: Mammography: Comparison is made with available priors TECHNIQUE: Digital breast tomosynthesis is performed in both the craniocaudal and mediolateral oblique views along with computer-aided detection (CAD). Synthesized 2D images are generated from the tomosynthesis. FINDINGS: The breasts are heterogeneously dense, which may obscure small masses (ACR BI-RADS breast composition Category c). There are no significant masses, abnormal calcifications, or other abnormalities. MM/MM tomosynthesis screening BI IMPRESSION: No mammographic evidence of malignancy. ASSESSMENT: BI-RADS BI-RADS 1 - Negative RECOMMENDATION: Routine annual mammography screening. 1 year F/U This examination should not preclude the clinical evaluation of a suspicious palpable abnormality. This patient's information was entered into a reminder system with a target due date for their next mammogram. Electronically signed by: Akosua Israel DO 08/21/2024 12:45 PM EDT Dictated By: Akosua Israel DO Signed By: <Electronically signed by Akosua Israel DO in OV> 08/21/24 1245 DD/ 9 TD/TT: 07/28/24729 Back Digger Operator: Shantelle Mejia MD IM BI PROCEDURES Edited Result - Final * HPV mRNA E6/E7 w/Reflex to HPV Genotypes 16, 18/45 (07/10/2023 11:20 AM EDT) HPV nRNA E6/E7 Not Detected Not Detected [facility] Comment:Methodology: Transcr iption-Mediated AmplificationThis assay detects E6/E7 viral messenger RNA (mRNA) from 14high-risk HPV types (16,18,31,33,35,39,45,51,52,56,58,59,66,68).Cervical sources are required for HPV testing.If a vaginal source from a patient who has had atotal hysterectomy with removal of cervix wassubmitted, please contact the testing laboratoryfor alternative testing options.For additional information, please refer [email or web address]/faq/[email or web address](This link if provided for information/educational purposes only.)THIS TEST WAS PERFORMED AT:[facility] [place] [id number] LEI MD HPV mRNA E6/E7 [facility] HPV 16 RNA [facility] HPV 18/45 RNA [facility] 07/10/2023 11:2 0 AM EDT 07/11/2023 9:00 AM EDT us Quang Nicholas CNM LAB CYTOLOGY ORDERABLES F inal Result [facility] [address] [place] [address] [phone] * Pap Smear (07/10/2023) 07/10/2023 07/11/2023 9:0 0 AM EDT Narrative [facility] - 07/27/2023 4:18 PM EDT ----- ------- Name: Cynthia Carreno ? Age/Sex: 38/F ? : 1985 Unit#: [id number] ?? Attend Dr: QUANG NICHOLAS CNM ?Re07/10/23 ?Status: DEP REF ? Location: HO.HHCLNP ? Disch: ? ----- ------- SPEC : [id number] ?RECD: 07/11/23 ? STATUS: ??SOUT ? REQ NUM: [id number] ? MEENAKSHI: 07/10/23- ? SUBM DR: QUANG NICHOLAS CNChinedu ? ENTERED: ??07/11/23-1400 ?SP TYPE: Pap Smr ?OTHR DR: ? ORDERED: ??Pap Smear ? Interpretation ?? Satisfactory for evaluation. ?? Negative for intraepithelial lesion or malignancy. ? HPV mRNA E6/E7: ?NOT DETECTED ? This assay detects E6/E7 viral messenger RNA (mRNA) from 14 high-risk HPV types (16, 18, ?? 31, 33, 35, 39, 45, 51, 52, 56, 58, 59, 66, 68) ? HPV testing performed by [facility] [facility], [place], [place]. ??See reference laboratory ?? portion of the EMR for entire report. ?Clinical Information LMP:Unknown date Previous PAP test:2020 ? Material Received ?? ThinPrep-Cervical ----- ------- Signed (signature on file) Trudy Stokes 07/27/23 1618 ? ----- ------- ? END OF REPORT ? us Quang Nicholas [facility] CYTOLOGY ORDERABLES F inal Result [facility] [address] [place] [phone] from Last 3 Months or Most Recently Relevant to Health Maintenance Insurance [facility] ADULT DENTAL - HSN FULL (MEDICAID) Care Teams Stonemason Apprentice Relationship Specialty Start Date End Date Shantelle Cunningham MD [address] [place] [phone] PCP - General Internal Medicine 06/17/23
--- OUTSIDE RECORDS SUMMARY | 2025-04-09 12:37 | XMS_ITS | Encounter Summary ---
Author Organization [facility] Address [address] [place] [address] Care Team Providers Care Road Patcher Name Role Phone Shantelle Cunningham Primary Care Provider [phone] Encounter Details Date Type Department Care Team (Late Contact Info) Description 09/05/2023 Orders Only [facility] XRay [address] [place] [address] Nilda Aiken MD [address] [place] [address] Social History Tobacco Use Types Packs/Day Years [...] Info) Description 06/16/2025 3:30 PM EDT Follow-Up [facility] [address] [place] [address] Cake Wrapper: Mona Edwards PA [address] [place] [address] [phone] documented as of this encounter Visit Diagnoses Not on filedocumented in this encounter Care Teams Road Patcher Relationship Specialty Start Date End Date Shantelle Cunningham PCP - General 07/18/23 documented as of this encounter
--- OUTSIDE RECORDS SUMMARY | 2025-04-09 12:37 | XMS_ITS | Clinical Summary ---
Author Organization [facility] Address [address] [place] [address] Care Team Providers Care Camera Repair Technician Name Role Phone Shantelle Cunningham Primary Care Provider [phone] Allergies No known active allergies Medications No known medications Social History Tobacco Use Types Packs/Day Years Used Date Smoking Tobacco: Never Assessed Comments Unknown Sex and Gender Information Value Date Recorded Sex Assigned at Female 09/11/2023 8:40 AM EDT Legal Sex Female 2:46 PM EDT Gender Identity Female 09/11/2023 8:40 AM EDT Sexual Orientation Other 09/11/2023 8: 40 AM EDT Last Filed Vital Signs Vital Sign Reading Time Taken Comments Blood Pressure 160/99 11/27/2024 1:03 PM EST Pulse 86 11/27/2024 1:03 PM EST Temperature - - Respiratory Rate - - Oxygen Saturation 97% 11/27/2024 1:03 PM EST Inhaled Oxygen Concentration - - Weight 82.5 kg (181 lb 14.1 oz) 11/27/2024 1:03 PM EST Height - - Body Mass Index - - Plan of Treatment Upcoming Encounters Date Type Department Care Team (Late st Contact Info) Description 06/16/2025 3:30 PM EDT Follow-Up [facility] Urology Clinic [address] [place] [address] - [place] [address] Tube Room Supervisor: Leslie Umaña, TYLOR Emerson [address] [place] [phone] Health Maintenance Due Date Last Done Comments HPV and Pap Smear 1985 Varicella Vaccines (1 of 2 - 13+ 2-dose series) 1996 Hepatitis B Vaccines (1 of 3 - 19+ 3-dose series) 2002 DTaP,Tdap,and Td Vaccines (1 - Tdap) 2005 COVID-19 Vaccine (1 - 202-2 5 season) 2024 Alcohol/Substance Use Screening 12/02/2024 Depression Screening and Follow-Up 12/02/2024 Social Drivers of Health Annual Screening 12/02/2024 Mammogram 07/22/2025 07/22/2023, 07/22/2023 Influenza Vaccine (Season Ended) 2025 Cervical Cancer Screening 07/10/2026 Pap Smear 07/10/2026 07/10/2023 RSV Vaccine (60+ years old and patients) (1 - 1-dose 75+ series) 2058 HIV Screening Completed 09/29/2024, 09/29/2024 Hepatitis C Screening Completed 09/29/2024 Pneumococcal Vaccine: Pediatric (0-5 Years) and At-Risk Patients (6-50 Years) Aged Out No longer eligible based on patient's age to complete this topic Insurance [facility]/FREE CARE Care Teams Camera Repair Technician Relationship Specialty Start Date End Date Shantelle Cunningham PCP - General 07/18/23
--- OUTSIDE RECORDS SUMMARY | 2025-04-09 12:38 | XMS_ITS | Referral Summary ---
Author Organization [facility] Address [address] [phone] Care Team Providers Care Diesel Locomotive Engineer Name Role Phone Shantelle Cunningham Primary Care Provider [phone] Allergies No known active allergies Medications No [...] Info) Description 06/16/2025 3:30 PM EDT Follow-Up [facility] Clinic [address] [place] [phone] Silver Designer: Leslie Umaña, TYLOR Emerson [address] [place] [phone] Insurance [place] [facility]/FREE CARE Care Teams Diesel Locomotive Engineer Relationship Specialty Start Date End Date Shantelle Cunningham PCP - General 07/18/23
--- OUTSIDE RECORDS SUMMARY | 2025-04-09 12:38 | XMS_ITS | Encounter Summary ---
Author Organization [email or web address] Address [address] [facility] [address] [place] [address] Care Team Providers Care Commissions Analyst Name Role Phone Shantelle Cunningham MD Primary Care Pro vider Reason for Visit * Reason Onset Date Comments chartprep 04/08/2025 Encounter Details Date Type Department Care Team (Late st Contact Info) Description 04/08/2025 Telephone [facility] MEDICINE [address] [place], [place] [phone] Shantelle Cunningham MD [address] [place] [address] chartprep Social History Tobacco Use Types Packs/Day Years Used Date Smoking Tobacco: Never Passive Smoke Exposure: Never Smokeless Tobacco: Never Alcohol Use Standard Drinks/Week Comments Not Currently 0 (1 standard drink = 0.6 oz pur e alcohol) social Depression Answer Date Recorded Patient Health Questionnaire-9 Score 0 08/04/2024 Patient Health Questionnaire-9 Score 0 08/04/2024 Last PHQ-9: Questionnaire Data Not on file 0 08/04/2024 Housing Stability Answer Date Recorded What is your housing situation today? I have woo day 08/04/[address] you li [...] Orientation Straight 06/17/2023 2: 10 PM EDT documented as of this encounter Miscellaneous Notes * Telephone Encounter - Mare Gibson [place] - 04/08/2025 10:23 AM EDT ..Chart Prep Labs: not applicable Images: done US kidney Vaccines due: Covid Due, Tdap Due, Hep B Due, and Flu Due Referrals: Not Applicable Screenings: Mammogram Overdue care gaps: Sbirt, Disability , and Oral Health documented in this encounter Plan of Treatment Not on file documented as of this encounter Visit Diagnoses Not on filedocumented in this encounter Additional Health Concerns Assessment Noted Time PHQ-9 Depression Total Score: 0 08/04/20 24 10:58 AM EDT documented as of this encounter Care Teams Commissions Analyst Relationship Specialty Start Date End Date Shantelle Cunningham MD [address] [place] [phone] PCP - General Internal Medicine 06/17/23 documented as of this encounter
--- OUTSIDE RECORDS SUMMARY | 2025-04-09 12:38 | XMS_ITS | Encounter Summary ---
Author Organization [employer] Address [address] [place] [address] Care Team Providers Care Laundry Marker Supervisor Name Role Phone Shantelle Cunningham MD Primary Care Pro vider Shantelle Cunningham MD Primary Care Pro vider Reason for Visit * Reason Onset Date Comments New Patient Appt 04/25/2023 Encounter Details Date Type Department Care Team (Late st Contact Info) Description 04/25/2023 Telephone [facility] MEDICINE [address] [place] [address] [phone] Shantelle Cunningham MD [address] [place], [place] [phone] New Patient Appt Social History Tobacco Use Types Packs/Day Years Used Date Smoking Tobacco: Never Assessed Comments Unknown Sex and Gender Information Value Date Recorded Sex Assigned at Female 04/25/2023 12:11 PM EDT Legal Sex Female 11:55 AM EDT Gender Identity Female 04/25/2023 12:11 PM EDT Sexual Orientation Straight 06/17/2023 2: 10 PM EDT documented as of this encounter Miscellaneous Notes * Telephone Encounter - Trini Enriquez - 04/25/2023 12:16 PM EDT PAR Trini Titus called [facility] Charge Loader to Offer REGULATORY AND COMPLIANCE TECHNICIAN appt to Pt. Pt demographics and insurance information were verified. Pt reports the following medical/history conditions: Rhino Cancer (Kidney). Pt is not taking any medication at this time. Pt given REGULATORY AND COMPLIANCE TECHNICIAN appt with on 06/17/[address] Fonseca @ 1:45 pm. Pt will be sent appt reminder card and medical release form and agrees to complete and to return to medical records prior to REGULATORY AND COMPLIANCE TECHNICIAN appt. documented in this encounter Plan of Treatment Not on file documented as of this encounter Visit Diagnoses Not on filedocumented in this encounter Care Teams Laundry Marker Supervisor Relationship Specialty Start Date End Date Shantelle Cunningham MD [address] [place] [phone] PCP - General Internal Medicine 04/25/23 05/01/23 Shantelle Cunningham MD [address] [place] [address] PCP - General Internal Medicine 06/17/23 documented as of this encounter
--- OUTSIDE RECORDS SUMMARY | 2025-04-09 12:38 | XMS_ITS | Encounter Summary ---
Author Organization [employer] Address [address] [facility] [address] [place] [address] Care Team Providers Care Physician Compensation Analyst Name Role Phone Shantelle Cunningham MD Primary Care Pro vider Reason for Visit * Reason Onset Date Comments Lab Orders 04/05/2025 Encounter Details Date Type Department Care Team (Late st Contact Info) Description 04/05/2025 Telephone [facility] MEDICINE [address] [place], [place] [phone] Shantelle Cunninhgam MD [address] [place] [address] Lab Orders Social History Tobacco Use Types Packs/Day Years [...] encounter Miscellaneous Notes * Telephone Encounter - Sarika King [place] - 04/05/2025 1:50 PM EDT Called to see if had labs pending prier to next appointment. Cuprous Chloride Operator informed none are due at this time. documented in this encounter Plan of Treatment Not on file documented as of this encounter Visit Diagnoses Not on filedocumented in this encounter Additional Health Concerns Assessment Noted Time PHQ-9 Depression Total Score: 0 08/04/20 24 10:58 AM EDT documented as of this encounter Care Teams Physician Compensation Analyst Relationship Specialty Start Date End Date Shantelle Cunningham MD [address] [place] [address] PCP - General Internal Medicine 06/17/23 documented as of this encounter
--- OUTSIDE RECORDS SUMMARY | 2025-04-09 12:38 | XMS_ITS | Encounter Summary ---
Author Organization [facility] Address [address] [place] [address] Care Team Providers Care Equalizer Operator Name Role Phone Shantelle Cunningham Primary Care Provider [phone] Encounter Details Date Type Department Care Team (Latest Contact Info) Description 08/10/2024 Transcribe Orders [facility] Physician Referral Services [address] [place] [address] Shantelle Cunningham [address] [place] [address] Skin lesion (Primary Dx) Social History Tobacco Use Types Packs/Day Years [...] Info) Description 06/16/2025 3:30 PM EDT Follow-Up [facility] Urology Clinic [address] [place] [address] Mammalogy Teacher: Leslie Umaña, TYLOR Emerson [address] [place] [address] documented as of this encounter Visit Diagnoses Diagnosis Skin lesion- Primary Unspecified disorder of skin and subcutaneous tissue documented in this encounter Care Teams Equalizer Operator Relationship Specialty Start Date End Date Shantelle Cunningham PCP - General 07/18/23 documented as of this encounter
--- OUTSIDE RECORDS SUMMARY | 2025-04-09 12:38 | XMS_ITS | Encounter Summary ---
Author Organization [email or web address] Address [address] [facility] 7[address] [place] [address] Care Team Providers Care Hog Man Name Role Phone Shantelle Cunningham MD Primary Care Pro vider Encounter Details Date Type Department Care Team (Latest Contact Info) Description 04/09/2025 11:15 AM EDT Office Visit [facility] MEDICINE [address] [place], [place] [phone] Shantelle Cunningham MD [address] [place] [address] Hyperlipidemia, unspecified hyperlipidemia type (Primary Dx); Dietary counseling; Exercise counseling; Hair loss Social History Tobacco Use Types Packs/Day Years [...] PM EDT documented as of this encounter Last Filed Vital Signs Vital Sign Reading [...] Mass Index 29.08 04/09/2025 11:19 AM EDT documented in this encounter Plan of Treatment Scheduled Orders Name Type Priority Associated Diagnoses Orde r Schedule Comprehensive Metabolic Panel Lab Routine Hyperlipidemia, unspecified hyperlipidemia type Expected: 04/09/2025 (Approximate), Expires: 04/09/2026 Lipid Panel, Standard Lab Routine Hyperlipidemia, unspecified hyperlipidemia type Expected: 04/09/2025 (Approximate), Expires: 04/09/2026 TSH W/Reflex to FT4 Lab Routine Hair loss Expected: 04/09/2025 (Approximate), Expires: 04/09/2026 CBC auto differential Lab Routine Hair loss Expected: 04/09/2025 (Approximate), Expires: 04/09/2026 documented as of this encounter Visit Diagnoses Diagnosis Hyperlipidemia, unspecified hyperlipidemia type- Primary Dietary counseling Dietary surveillance and counseling Exercise counseling Hair loss Unspecified alopecia documented in this encounter Additional Health Concerns Assessment Noted Time PHQ-9 Depression Total Score: 0 08/04/20 24 10:58 AM EDT documented as of this encounter Care Teams Hog Man Relationship Specialty Start Date End Date Shantelle Cunningham MD [address] [place] [phone] PCP - General Internal Medicine 06/17/23 documented as of this encounter
--- OUTSIDE RECORDS SUMMARY | 2025-04-09 12:38 | XMS_ITS | Encounter Summary ---
Author Organization [employer] Address [address] [facility] 7[address] [place] [address] Care Team Providers Care Carrier Blower Name Role Phone Shantelle Cunningham MD Primary Care Pro vider Encounter Details Date Type Department Care Team (Latest Contact Info) Description 04/09/2025 Travel Social History Tobacco Use Types Packs/Day Years [...] your housing situation today? I have woo sing 08/04/[address] you li [...] PM EDT documented as of this encounter Plan of Treatment Not on file documented as of this encounter Visit Diagnoses Not on filedocumented in this encounter Additional Health Concerns Assessment Noted Time PHQ-9 Depression Total Score: 0 08/04/20 24 10:58 AM EDT documented as of this encounter Care Teams Carrier Blower Relationship Specialty Start Date End Date Shantelle Cunningham MD [address] [place] [phone] PCP - General Internal Medicine 06/17/23 documented as of this encounter
[2025-04-09 16:05] LABS: MANUAL DIFF FLAG NO
[2025-04-09 16:28] LABS: Basophils Percent Auto 0.5 % (0-2); Eosinophils Absolute Auto 0.1 X10*3/uL (0.0-0.4); Eosinophils Percent Auto 0.9 % (0-4); Hematocrit 40.5 % (37.0-47.0); Hemoglobin 13.6 g/dl (12.0-16.0); Imm Gran Abs Auto 0.01 X10*3/uL (0.00-0.03); Imm Gran Pct Auto 0.1 % (0.0-0.4); Lymphocytes Absolute Auto 3.4 X10*3/uL (1.2-4.9); Lymphocytes Percent Auto 38.5 % (20-40); Mean Corpuscular HGB Conc 33.6 g/dl (31.0-35.0); Mean Corpuscular Volume 89.4 fL (80.0-98.0); Mean Platelet Volume 9.4 fL (9.4-12.3); Monocytes Percent Auto 10.9 % (2-11); Neutrophils Absolute Auto 4.4 x10*3/uL (2.0-8.3); Neutrophils Percent Auto 49.1 % (45-73); Platelet Count 380 X10*3/uL (160-400); Red Blood Count 4.53 X10*6/uL (4.20-5.50); Red Cell Distribution Width 12.3 % (11.0-16.0); White Blood Count 8.8 X10*3/uL (4.8-10.8)
[2025-04-09 17:30] LABS: Anion Gap 12 (12-20)
[2025-04-09 17:58] LABS: Alanine Aminotransferase 13 U/L (0-31); Albumin Level 4.2 g/dL (3.5-5.0); Aspartate Amino Transferase 21 U/L (5-31); Bilirubin Total 0.6 mg/dL (0.0-1.0); Blood Urea Nitrogen 13 mg/dL (9-16); Calcium 8.7 mg/dL (8.4-10.2); Carbon Dioxide 26 mmol/L (22-29); Chloride 105 mmol/L (96-108); Cholesterol 225 mg/dL (<200); Estimated Glomerular Filt Rate > 60; Glucose Random 86 mg/dL (60-115); HDL Cholesterol 56 mg/dL (>40); LDL Cholesterol Calculated 149 mg/dL (<100); Sodium 139 mmol/L (135-145); TSH reflex Free T4 0.65 uIU/mL (0.32-4.0); Total Protein 7.4 g/dL (6.5-8.0); Triglycerides 102 mg/dL (<150)
[2025-04-09 18:08] LABS: Alkaline Phosphatase 59 U/L (39-117)
== END 2025-04-09 12:36 | disposition home or self-care (01) ==
LOC: HO.HHCL 12:35
PROVIDERS: Visit Provider Student in an Organized Health Care Education/Training Program
DX: L65.9 Nonscarring hair loss, unspecified (principal); E78.5 Hyperlipidemia, unspecified
CPT/HCPCS: 36415; 80053; 80061; 84443; 85025

== ENCOUNTER 2025-08-06 13:31 | Outpatient (REF) | payer MEDICAID, SELFPAY ==
--- OUTSIDE RECORDS SUMMARY | 2025-08-05 09:57 | XMS_ITS | Encounter Summary ---
Author Organization [facility] Address [address] [place] [address] Care Team Providers Care Dev Ops Engineer Name Role Phone Shantelle Cunningham Primary Care Provider [phone] Reason for Visit * Diagnostic Imaging (Routine) - Pending Review Specialty Diagnoses / Procedures Referred By Shannon haji Referred To Contact Diagnoses Hydroureteronephrosis Procedures NM Kidney Flow and Function with Lasix NM Kidney Flow and Function Mona Umaña PA [address] [place] [address] Phone: tel: fax: Referral ID Status Reason Start Date Expiration Date V isits Requested Visits Authorized [id number] Pending Review 06/16/2025 12/16/2026 1 1 Encounter Details Date Type Department Care Team (Latest Contact Info) Description 08/05/2025 9:57 AM EDT - 08/05/2025 11:59 PM EDT Hospital Encounter [facility] Nuclear Medicine [address] [place] [phone] Hydroureteronephrosis Discharge Disposition: Home or Self Care () Social History Tobacco Use Types Packs/Day Years [...] Upcoming Encounters Date Type Department Care Team ( st Contact Info) Description 06/14/2026 8:30 AM EDT Appointment [facility] Ultrasound [address] [place] [address] 06/17/2026 3:30 PM EDT Follow-Up [facility] Urology Clinic [address] [facility] [place] [address] Water Filter Cleaner: Leslie Umaña, TYLOR Emerson [address] [place] [phone] documented as of this encounter Procedures * Due to [place] kaleo law, this organization might not be sharing negative HIV tests. Procedure Name Priority Date/Time Associated Diagnosis Comments NM KIDNEY FLOW AND FUNCTION WITH LASIX Routine 08/05/2025 11:23 AM EDT Hydroureteronephros is documented in this encounter Results * Due to [place] kaleo law, this organization might not be sharing negative HIV tests. * NM Kidney Flow and Function with Lasix (08/05/2025 11:23 AM EDT) Anatomical Region Laterality Modality Body Nuclear Medicine 08/05/2025 1:09 PM EDT Impressions 08/05/2025 1:16 PM EDT 1. Split function: Right 40 % , Left 60%. 2. Mildly decreased right renal function with mild nonobstructive hydronephrosis. 3. Normal left renal function and excretion. If this radiology report contains a blank impression section, it is an incomplete radiology report. Please contact the interpreting radiologist or applicable radiology division as soon as possible to obtain the completed interpretation. Workstation ID: [id number] Narrative 08/05/2025 1:16 PM EDT EXAM: RENAL STUDY, PERFUSION and FUNCTION CLINICAL INFORMATION: 40 years old male with bilateral pelviectasis and history of right VUR and ureteral reimplantation. Evaluate perfusion, function, and excretion. PHARMACEUTICAL: 10 mCi Tc-99m MAG3 were injected IV as a bolus. Multiple planar static and computer registered images were then obtained every minute for minutes. mg of IV furosemide were given at 24 minutes. COMPARISON: Renogram from 12/19/2023. FINDINGS: Flow phase: Symmetrical arrival of the tracer to both kidneys. Cortical phase: Split function: Right 40%, Left 60% Right kidney: The right kidney is slightly smaller in size in keeping with history of partial nephrectomy. There is prompt cortical uptake, lesser than on the left kidney. Left kidney: The left kidney is normal in size. There is prompt cortical uptake. No cortical defects. Excretory phase: Right kidney: There is normal corticomedullary transit but mild pooling in the renal pelvis and upper calyx at the completion of the in the initial imaging. Left kidney: Normal corticomedullary transit with tracer visualized in the collecting system by 2 minutes (normal <8minutes). There is spontaneous drainage with mild pooling in the renal pelvis at the completion of the in the initial imaging. Furosemide augmentation: Right kidney: Following administration of furosemide, there is continue continued emptying and mild pooling with normal urodynamics, T 1/2 of 8 minutes. Left kidney: Following administration of furosemide, there is complete clearance of the tracer from the calyceal system. Resulting Agency Comment [id number] Procedure Note Johanny Trevino MD - 08/05/2025 EXAM: RENAL STUDY, PERFUSION and FUNCTION CLINICAL INFORMATION: 40 years old male with bilateral pelviectasis andhistory of right VUR and ureteral reimplantation. Evaluate perfusion,function, and excretion. PHARMACEUTICAL: 10 mCi Tc-99m MAG3 were injected IV as a bolus. Multipleplanar static and computer registered images were then obtained everyminute for minutes. mg of IV furosemide were given at 24 minutes. COMPARISON: Renogram from 12/19/2023. FINDINGS: Flow phase: Symmetrical arrival of the tracer to both kidneys. Cortical phase: Split function: Right 40%, Left 60% Right kidney: The right kidney is slightly smaller in size in keeping withhistory of partial nephrectomy. There is prompt cortical uptake, lesserthan on the left kidney. Left kidney: The left kidney is normal in size. There is prompt corticaluptake. No cortical defects. Excretory phase: Right kidney: There is normal corticomedullary transit but mild poolingin the renal pelvis and upper calyx at the completion of the in theinitial imaging. Left kidney: Normal corticomedullary transit with tracer visualized in thecollecting system by 2 minutes (normal <8minutes). There is spontaneousdrainage with mild pooling in the renal pelvis at the completion of the inthe initial imaging. Furosemide augmentation: Right kidney: Following administration of furosemide, there is continuecontinued emptying and mild pooling with normal urodynamics, T 1/2 of 8minutes. Left kidney: Following administration of furosemide, there is completeclearance of the tracer from the calyceal system. IMPRESSION: 1. Split function: Right 40 % , Left 60%. 2. Mildly decreased right renal function with mild nonobstructivehydronephrosis. 3. Normal left renal function and excretion. If this radiology report contains a blank impression section, it is anincomplete radiology report. Please contact the interpreting radiologistor applicable radiology division as soon as possible to obtain thecompleted interpretation. Workstation ID: [id number] Mona VILLAFANA NM PROCEDURES Fi nal Result documented in this encounter Visit Diagnoses Diagnosis Hydroureteronephrosis Hydronephrosis documented in this encounter Administered Medications Inactive Administered Medications - up to 3 most recent administrations Medication Order MAR Action Action Date Dose Rate Site furosemide (LASIX) injection 40 mg 40 mg, intravenous, Once in imaging, radiopharm, Starting on Demetrice 08/05/25 at 1038, 1 dose, Until Demetrice 08/05/25 at 1044, Imaging Protocol Orders Given 08/05/2025 10:44 AM EDT 40 mg Tc-99m - mertiatide (MAG3) radiopharmaceutical 10 millicurie 10 millicurie, intravenous, Once in imaging, other, radiopharmaceutical, Starting on Demetrice 08/05/25 at 1020, 1 dose, Until Demetrice 08/05/25 at 1017, Imaging Protocol Orders Given 08/05/2025 10:17 AM EDT 10 millicuries Right Antecubital documented in this encounter Care Teams Dev Ops Engineer Relationship Specialty Start Date End Date Shantelle Cunningham PCP - General 07/18/23 documented as of this encounter
--- OUTSIDE RECORDS SUMMARY | 2025-08-06 09:00 | XMS_ITS | Encounter Summary ---
Author Organization [employer] Address [address] [facility] 7[address] [place] [address] Care Team Providers Care Director Of Testing Name Role Phone Shantelle Cunningham MD Primary Care Pro vider Encounter Details Date Type Department Care Team (Late st Contact Info) Description 08/06/2025 9:00 AM EDT Office Visit [facility] [address] [place], [place] [phone] Shantelle Cunningham MD [address] [place] [address] Health care maintenance (Primary Dx) Social History Tobacco Use Types [...] Sign Reading Time Taken Comments Blood Pressure 118/74 08/06/2025 9:08 AM EDT Pulse 74 08/06/2025 9:08 AM EDT Temperature 36.3 C (97.3 F) 08/06/2025 9:08 AM EDT Respiratory Rate 20 08/06/2025 9:08 AM EDT Oxygen Saturation 97% 08/06/2025 9:08 AM EDT Inhaled Oxygen Concentration - - Weight 81.1 kg (178 lb 12.8 oz) 08/06/2025 9:08 AM EDT Height 167 cm (5' 5.75 ) 08/06/2025 9:08 AM EDT Body Mass Index 29.08 08/06/2025 9:08 AM EDT documented in this encounter Functional Status * Little interest or pleasure in doing things Answer Date of Assessment Author Not at all 08/06/2025 9:09 AM EDT Carroll King MA * Trouble falling or staying asleep, or sleeping too much Answer Date of Assessment Author Not at all 08/06/2025 9:09 AM EDT Carroll King MA * Feeling tired or having little energy Answer Date of Assessment Author Not at all 08/06/2025 9:09 AM EDT Carroll King MA * Poor appetite or overeating Answer Date of Assessment Author Not at all 08/06/2025 9:09 AM EDT Carroll King MA * Feeling bad about yourself - or that you are a failure or have let yourself or your family down Answer Date of Assessment Author Not at all 08/06/2025 9:09 AM Carroll Partida MA * Trouble concentrating on things, such as reading the newspaper or watching television Answer Date of Assessment Author Not at all 08/06/2025 9:09 AM Carroll Partida MA * Moving or speaking so slowly that other people could have noticed? Or the opposite - being so fidgety or restless that you have been moving around a lot more than usual. Answer Date of Assessment Author Not at all 08/06/2025 9:09 AM Carroll Partida MA * Thoughts that you would be better off or hurting yourself in some way Answer Date of Assessment Author Not at all 08/06/2025 9:09 AM Carroll Partida MA * Over the last 2 weeks, how often have you been bothered by any of the following problems? Question Answer Date of Assessment Author Feeling nervous, anxious, or on edge 0 08/06/2025 9:09 AM Sarika Partida MA Not being able to stop or co ntrol worrying 0 08/06/2025 9:09 AM Sarika Partida MA Worrying too much about diff erent things 0 08/06/2025 9:09 AM Sarika Partida MA Trouble relaxing 0 08/06/2025 9:09 AM Sarika Rodriguez MA Being so restless that it is hard to sit still 0 08/06/2025 9:09 AM Sarika Partida MA Becoming easily annoyed or irritable 0 08/06/2025 9:09 AM Sarika Partida MA Feeling afraid as if somethi ng awful might happen 0 08/06/2025 9:09 AM Sarika Partida MA CHARANJIT-7 Total Score 0 08/06/2025 9:09 AM Sarika Partida MA documented as of this encounter Plan of Treatment Scheduled Orders Name Type Priority Associated Diagnoses Orde r Schedule Albumin, Random Urine W/Creatinine Lab Routine Health care maintenance Expected: 08/06/2025 (Approximate), Expires: 08/06/2026 CBC auto differential Lab Routine Health care maintenance Expected: 08/06/2025 (Approximate), Expires: 08/06/2026 Chlamydia/Trichomonas/Neis seria gonorrhoeae, PCR, Urine Lab Routine Health care maintenance Ordered: 08/06/2025 Comprehensive Metabolic Panel Lab Routine Health care maintenance Expected: 08/06/2025 (Approximate), Expires: 08/06/2026 Hemoglobin A1c Lab Routine Health care maintenance Expected: 08/06/2025 (Approximate), Expires: 08/06/2026 Hepatitis B surface antigen, EIA Lab Routine Health care maintenance Expected: 08/06/2025 (Approximate), Expires: 08/06/2026 Hepatitis C Antibody with Reflex to HCV, RNA, Quantitative, Real-Time PCR Lab Routine Health care maintenance Expected: 08/06/2025 (Approximate), Expires: 08/06/2026 HIV-1/2 Antigen and Antibodies, Fourth Generation, with Reflexes Lab Routine Health care maintenance Expected: 08/06/2025 (Approximate), Expires: 08/06/2026 Lipid Panel, Standard Lab Routine Health care maintenance Expected: 08/06/2025 (Approximate), Expires: 08/06/2026 Syphilis Screen Lab Routine Health care maintenance Expected: 08/06/2025 (Approximate), Expires: 08/06/2026 TSH with Reflex to Free T4 Lab Routine Health care maintenance Expected: 08/06/2025 (Approximate), Expires: 08/06/2026 Vitamin D, 25-Hydroxy, Total, Immunoassay Lab Routine Health care maintenance Expected: 08/06/2025 (Approximate), Expires: 08/06/2026 documented as of this encounter Visit Diagnoses Diagnosis Health care maintenance- Primary documented in this encounter Additional Health Concerns Assessment Noted Time PHQ-9 Depression Total Score: 0 08/04/20 24 10:58 AM EDT documented as of this encounter Care Teams Director Of Testing Relationship Specialty Start Date End Date Shantelle Cunningham MD [address] [place] [id number] PCP - General Internal Medicine 06/17/23 documented as of this encounter
--- OUTSIDE RECORDS SUMMARY | 2025-08-06 13:50 | XMS_ITS | Encounter Summary ---
Author Organization [facility] Address [address] [place] [address] Care Team Providers Care Junior Legal Secretary Name Role Phone Shantelle Cunningham Primary Care Provider [phone] Encounter Details Date Type Department Care Team (Latest Contact Info) Description 08/10/2024 Transcribe Orders [facility] Physician Referral Services [address] [place] [address] Shantelle Cunningham [address] [place] [address] Skin lesion (Primary Dx) Social History Tobacco [...] Care Team (Late st Contact Info) Description 06/14/2026 8:30 AM EDT Appointment [facility] Ultrasound [address] [place] [address] 06/17/2026 3:30 PM EDT Follow-Up [facility] [address] [place] [address] Circuit Board Drafter: Leslie Umaña, TYLOR Emerson [address] [place] [phone] documented as of this encounter Visit Diagnoses Diagnosis Skin lesion- Primary Unspecified disorder of skin and subcutaneous tissue documented in this encounter Care Teams Junior Legal Secretary Relationship Specialty Start Date End Date Shantelle Cunningham PCP - General 07/18/23 documented as of this encounter
--- OUTSIDE RECORDS SUMMARY | 2025-08-06 13:50 | XMS_ITS | Encounter Summary ---
Author Organization [facility] Address [address] [place] [address] Care Team Providers Care Superintendent Horticulture Name Role Phone Shantelle Cunningham Primary Care Provider [phone] Encounter Details Date Type Department Care Team (Late st Contact Info) Description 09/05/2023 Orders Only [facility] Xray [address] [place] [address] Nilda Aiken MD [address] [place] [address] Social History Tobacco Use Types Packs/Day Years [...] Info) Description 06/14/2026 8:30 AM EDT Appointment [facility] Ultrasound [address] [place] [address] 06/17/2026 3:30 PM EDT Follow-Up [facility] Urology Clinic [address] [place] [address] Fruit Peeler: Leslie Umaña, TYLOR Emerson [address] [place] [address] [phone] documented as of this encounter Visit Diagnoses Not on filedocumented in this encounter Care Teams Superintendent Horticulture Relationship Specialty Start Date End Date Shantelle Cunningham PCP - General 07/18/23 documented as of this encounter
--- OUTSIDE RECORDS SUMMARY | 2025-08-06 13:50 | XMS_ITS | Clinical Summary ---
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 Encounters Date Type Department Care Team Description 08/05/2025 9:57 AM EDT - 08/05/2025 11:59 PM EDT Hospital Encounter [facility] Nuclear Medicine [address] [place] [address] Hydroureteronephrosis Discharge Disposition: Home or Self Care () 06/17/2025 Orders Only [facility] Nuclear Medicine [address] [place] [phone] Johanny Trevino MD 06/16/2025 3:30 PM EDT Follow-Up [facility] [address] [place] [phone] Electronics Research Engineer: Leslie Umaña, TYLOR Emerson Hydroureteronephrosis (Primary Dx); Renal oncocytoma of right kidney; Status post ureteral reimplantation from Last 3 Months Social History Tobacco [...] Sign Reading Time Taken Comments Blood Pressure 147/87 06/16/2025 2:52 PM EDT Pulse 72 06/16/2025 2:52 PM EDT Temperature 36.8 C (98.2 F) 06/16/2025 2:52 PM EDT Respiratory Rate 18 06/16/2025 2:52 PM EDT Oxygen Saturation 99% 06/16/2025 2:52 PM EDT Inhaled Oxygen Concentration - - Weight 82.5 kg (181 lb 14.1 oz) 11/27/2024 1:03 PM EST Height - - Body Mass Index - - Plan of Treatment Upcoming Encounters Date Type Department Care Team (Late st Contact Info) Description 06/14/2026 8:30 AM EDT Appointment [facility] Ultrasound [address] [place] [address] 06/17/2026 3:30 PM EDT Follow-Up [facility] [address] [place] [address] Electronics Research Engineer: Leslie Umaña, TYLOR Emerson [address] [place] [phone] Health Maintenance Due Date Last Done Comments HPV and Pap Smear 1983 Varicella Vaccines (1 of 2 - 13+ 2-dose series) 1996 Hepatitis B Vaccines (1 of 3 - 19+ 3-dose series) 2002 DTaP,Tdap,and Td Vaccines (1 - Tdap) 2005 Alcohol/Substance Use Screening 12/02/2024 Depression Screening and Follow-Up 12/02/2024 Social Drivers of Health Annual Screening 12/02/2024 Mammogram 07/22/2025 07/22/2023, 07/22/2023 COVID-19 Vaccine ( - 2023-2 5 season) 2025 Influenza Vaccine (#1) 2025 Cervical Cancer Screening 07/10/2026 Pap Smear 07/10/2026 07/10/2023 RSV Vaccine (60+ years old and patients) (1 - 1-dose 75+ series) 2058 HIV Screening Completed 09/29/2024, 09/29/2024 Hepatitis C Screening Completed 09/29/2024 Pneumococcal Vaccine: Pediatric (0-5 Years) and At-Risk Patients (6-50 Years) Aged Out No longer eligible based on patient's age to complete this topic Procedures * Due to [place] ED01 law, this organization might not be sharing negative HIV tests. Procedure Name Priority Date/Time Associated Diagnosis Comments NM KIDNEY FLOW AND FUNCTION WITH LASIX Routine 08/05/2025 11:23 AM EDT Hydroureteronephros is from Last 3 Months Results * Due to [place] ED01 law, this organization might not be sharing [...] to obtain the completed interpretation. Workstation ID: [id number] Narrative 08/05/2025 1:16 PM EDT EXAM: RENAL [...] from the calyceal system. Resulting Agency Comment [id number] Procedure Note Johanny Trevino MD - 08/05/2025 [...] possible to obtain thecompleted interpretation. Workstation ID: [id number] Mona SNIDER IMDelma [place] PROCEDURES Fi nal Result from Last 3 Months Insurance [facility] HSNO/FREE CARE Care Teams Perforator Operator Relationship Specialty Start Date End Date Shantelle Cunningham PCP - General 07/18/23
--- OUTSIDE RECORDS SUMMARY | 2025-08-06 13:50 | XMS_ITS | Encounter Summary ---
Author Organization [employer] Address [address] [facility] 7[address] [place] [address] Care Team Providers Care Assistant Branch Operations Manager Name Role Phone Shantelle Cunningham MD Primary Care Pro vider Encounter Details Date Type Department Care Team (Latest Contact Info) Description 08/06/2025 Travel Social History Tobacco Use Types Packs/Day [...] PM EDT documented as of this encounter Functional Status * Little interest [...] or on edge 0 08/06/2025 9:09 AM EDT Sarika King MA Not being able to stop or co ntrol worrying 0 08/06/2025 9:09 AM EDT Sarika King MA Worrying too much about diff erent things 0 08/06/2025 9:09 AM EDT Sarika King MA Trouble relaxing 0 08/06/2025 9:09 AM EDT Sarika Matos MA Being so restless that it is hard to sit still 0 08/06/2025 9:09 AM EDT Sarika King MA Becoming easily annoyed or irritable 0 08/06/2025 9:09 AM EDT Sarika King MA Feeling afraid as if somethi ng awful might happen 0 08/06/2025 9:09 AM EDT Sarika King MA CHARANJIT-7 Total Score 0 08/06/2025 9:09 AM EDT Sarika King MA documented as of this encounter Plan of Treatment Not on file documented as of this encounter Visit Diagnoses Not on filedocumented in this encounter Additional Health Concerns Assessment Noted Time PHQ-9 Depression Total Score: 0 08/04/20 24 10:58 AM EDT documented as of this encounter Care Teams Assistant Branch Operations Manager Relationship Specialty Start Date End Date Shantelle Cunningham MD [address] [place] [phone] PCP - General Internal Medicine 06/17/23 documented as of this encounter
--- OUTSIDE RECORDS SUMMARY | 2025-08-06 13:50 | XMS_ITS | Encounter Summary ---
Author Organization [employer] Address [address] [place] [address] Care Team Providers Care Supervising Deputy Name Role Phone Shantelle Cunningham MD Primary Care Pro vider Shantelle Cunningham MD Primary Care Pro vider Reason for Visit * Reason Onset Date Comments New Patient Appt 04/25/2023 Encounter Details Date Type Department Care Team (Late st Contact Info) Description 04/25/2023 Telephone [facility] MEDICINE [address] [place] [phone] Shantelle Cunningham MD [address] [place], [place] [phone] New Patient Appt Social History Tobacco Use [...] 12:16 PM EDT PAR Trini Titus called [facility] Fertilizer Supervisor to Offer SIGN HANGER SUPERVISOR appt to Pt. Pt demographics and insurance information were verified. Pt reports the following medical/history conditions: Rhino Cancer (Kidney). Pt is not taking any medication at this time. Pt given SIGN HANGER SUPERVISOR appt with on 06/17/[address] Fonseca @ 1:45 pm. Pt will be sent appt reminder card and medical release form and agrees to complete and to return to medical records prior to SIGN HANGER SUPERVISOR appt. documented in this encounter Plan of Treatment Not on file documented as of this encounter Visit Diagnoses Not on filedocumented in this encounter Care Teams Supervising Deputy Relationship Specialty Start Date End Date Shantelle Cunningham MD [address] [place] [phone] PCP - General Internal Medicine 04/25/23 05/01/23 Shantelle Cunningham MD [address] [place] [address] PCP - General Internal Medicine 06/17/23 documented as of this encounter
--- OUTSIDE RECORDS SUMMARY | 2025-08-06 13:50 | XMS_ITS | Encounter Summary ---
Author Organization [facility] Address [address] [place] [address] Care Team Providers Care Gold Leaf Roller Name Role Phone Shantelle Cunningham Primary Care Provider [phone] Encounter Details Date Type Department Care Team (Late st Contact Info) Description 09/05/2023 Orders Only [facility] Nuclear Medicine [address] [place] [address] Guido Watson MD [address] [place] [address] Social History Tobacco Use Types Packs/Day Years [...] Info) Description 06/14/2026 8:30 AM EDT Appointment [facility] Ultrasound [address] [place] [address] 06/17/2026 3:30 PM EDT Follow-Up [facility] Clinic [address] [place] [phone] Orchard Manager: Leslie Umaña, TYLOR Emerson [address] [place] [phone] documented as of this encounter Visit Diagnoses Not on filedocumented in this encounter Care Teams Gold Leaf Roller Relationship Specialty Start Date End Date Shantelle Cunningham PCP - General 07/18/23 documented as of this encounter
--- OUTSIDE RECORDS SUMMARY | 2025-08-06 13:50 | XMS_ITS | Encounter Summary ---
Author Organization [facility] Address [address] [place] [address] Care Team Providers Care Motor Tester Name Role Phone Shantelle Cunningham Primary Care Provider [phone] Encounter Details Date Type Department Care Team (Late st Contact Info) Description 06/17/2025 Orders Only [facility] Nuclear Medicine [address] [place] [address] Johanny Trevino MD [address] [place] [address] Social History Tobacco Use Types Packs/Day Years [...] Info) Description 06/14/2026 8:30 AM EDT Appointment [facility] Ultrasound [address] [place] [address] 06/17/2026 3:30 PM EDT Follow-Up [facility] U[facility] [address] [place] [phone] Senior Warehouse Clerk: Leslie Umaña, TYLOR Emerson [address] [place] [address] [phone] documented as of this encounter Visit Diagnoses Not on filedocumented in this encounter Care Teams Motor Tester Relationship Specialty Start Date End Date Shantelle Cunningham PCP - General 07/18/23 documented as of this encounter
--- OUTSIDE RECORDS SUMMARY | 2025-08-06 13:50 | XMS_ITS | Clinical Summary ---
Author Organization [facility] [employer] Address [address] [place] [address] Care Team Providers Care Lead Technician Name Role Phone Shantelle Cunningham MD Primary Care Pro vider Allergies No known active allergies Medications omega-3 1000 MG capsule capsule Take 1 capsule (1,000 mg) by mouth 2 times daily. 180 capsule 1 5 04/09/20 26 Active norethindrone (Micronor) 0.35 MG tablet Take 1 tablet (0.35 mg) by mouth Once per day. 28 tablet 5 5 08/06/20 26 Active biotin 10 MG tabletIndicatio ns:Hair loss Take 1 tablet (10 mg) by mouth Once per day. 90 tablet 1 5 08/06/20 25 Discontinu ed(Other) Active Problems Problem Noted Date Diagnosed Date Overweight 08/04/2024 Skin lesions 08/04/2024 Hypertension 12/24/2023 Hair loss 12/24/2023 Hydroureteronephrosis 12/24/2023 Hyperlipidemia 07/15/2023 Assessment & Plan (08/28/2023 8:13 PM EDT): 06/2023 Total ch 225, trig 121, LDL 153, HDL 48 ASCVD 1.3 % ( no indication x statins) -life style changes advised -referred to ecology teacher---has apt 09/30/2023 -repeat fasting lipids in 6 mo and chem-aprox 01/2024 Assessment & Plan (07/15/2023 7:04 PM EDT): 06/2023 Total ch 225, trig 121, LDL 153, HDL 48 ASCVD 1.3 % ( no indication x statins) -life style changes advised -referred today to ecology teacher -repeat fasting lipids in 6 mo and [...] Problem Noted Date Diagnosed Date Resolved Date Right renal mass 06/17/2023 12/24/2023 Assessment & Plan (08/28/2023 8:16 PM EDT): -From her records: Pt brought records translated in [place] from [facility] -admitted from 10/25 to 11/10/2021 in [facility] -right renal cancer stage I and anemia. 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 -pt reports not able to schedule apt w urologist at [facility]---[place] but apparently not receiving referral ----I request today to talent sourcing specialist to send referral again Assessment & Plan (07/15/2023 7:05 PM EDT): -From her records: Pt brought records translated in [place] from [facility] -admitted from 10/25 to 11/10/2021 in [facility] -right renal cancer stage I and anemia. [...] the form of a retraction w dementions [id number] mm -reported microlite upper calyx of the [...] her records: Pt brought records translated in [place] from [facility] -admitted from 10/25 to 11/10/2021 in [facility] -right renal cancer stage I and anemia. 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 -referred today to urologist -referred for CT abd/pelvis w contrast --if abnormal cr -will advise pt to hold on test -UA to r/o hematuria Obese 06/17/2023 08/04/2024 Assessment & Plan (08/28/2023 8:10 PM EDT): BMI 30.31 -Advised pt to improve diet and exercise,discussed healthy life style -referred to ecology teacher to 09/30/2023 Assessment & Plan (07/15/2023 6:54 PM EDT): BMI 30.31 -Advised pt to improve diet and exercise,discussed healthy life style -referred today to ecology teacher Assessment & Plan (06/17/2023 10:27 PM EDT): Advised pt to improve diet and exercise,discussed healthy life style -will discuss ecology teacher referral at next apt Thyroid nodule 06/17/2023 [...] Encounters Date Type Department Care Team Description 08/06/2025 9:00 AM EDT Office Visit [facility] [address] [place] [phone] Shantelle Cunningham MD Health care maintenance (Primary Dx) 08/06/2025 Travel 07/30/2025 Patient Outreach [facility] [address] [place] [phone] Shantelle Cunningham MD Pre-visit Planning (Pre visit planning LVM ) 05/17/2025 Telephone [facility] [address] [place] [address] Shantelle Cunningham MD recall from Last 3 Months Social History [...] Mass Index 29.08 08/06/2025 9:08 AM EDT Plan of Treatment Health Maintenance Due Date Last Done Comments Dental Oral Exam 1985 Family Planning (PISQ) 1998 HPV Vaccines (1 - 3-dose series) 1998 Dental Prophylaxis 02/18/2024 08/19/2023 Dental X-Ray: Bitewings 08/20/2024 08/19/2023 COVID-19 Vaccine (1 - 2023-2 5 season) 2025 Influenza Vaccine (#1) 2025 Depression Screening 08/04/2025 08/04/2024, 08/04/2024 SDOH Screening 10/06/2025 10/06/2024 Alcohol/Substance Use Screening 04/09/2026 04/09/2025 DTaP/Tdap/Td Vaccines (1 - Tdap) 04/09/2026 Postponed from 03/15 (Patient Refused) Disability Screening 04/09/2026 04/09/2025 Hepatitis B Vaccines (1 of 3 - 19+ 3-dose series) 04/09/2026 Postponed from 03/02 (Patient Refused) Pap Smear 07/10/2026 07/10/2023 Mammogram 07/28/2026 07/28/2024, 07/22/2023 Tobacco Screening 08/06/2026 08/06/2025 Dental X-Ray: Full Mouth 08/20/2026 08/19/2023 Cervical Cancer Screening 07/10/2028 HPV/Cotest 07/10/2028 07/10/2023 Lipid Panel 04/09/2030 04/09/2025, 09/29/2024, 01/24/2024 Zoster Vaccines (1 of 2) [...] patient's age to complete this topic Meningococcal B Vaccine Aged Out No l onger eligible based on patient's age to complete this topic Meningococcal Vaccine Aged Out No jolynn nannette eligible based on patient's age to complete this topic Pneumococcal Vaccine: Pediatrics (0 to 5 Years) and At-Risk Patients (6 to 49) Years Aged Out No longer eligible b ased on patient's age to complete this topic RSV under 20 months Aged Out No longe r eligible based on patient's age to complete this topic Rotavirus Vaccines Aged Out No longer eligible based on patient's age to complete this topic Procedures Procedure Name Priority Date/Time Associated Diagnosis Comments LIPID PANEL, STANDARD Routine 04/09/2025 12:48 PM EDT Hyperlipidemia, unspecified hyperlipidemia type HEPATITIS C AB W/REFL TO HCV RNA, [...] Recently Relevant to Health Maintenance Results * (ABNORMAL) Lipid Panel, Standard (04/09/2025 12:48 PM EDT) Triglycerides 102 <150 mg/dL [facility] Comment:Desirable Triglyceri de: less than 150 mg/dLBorderline High Triglyceride 150-199 mg/dLHigh Triglyceride: 200-499 mg/dLVery High Triglyceride: greater than or equal to 5OO mg/dL Cholesterol 225(H) <200 mg/dL [facility] Comment:Desirable Cholestero l: less than 200 mg/dLBorderline High Cholesterol: 200-239 mg/dLHigh Cholesterol: greater than 239 mg/dL LDL Cholesterol Calculated 149(H) <100 mg/dL [facility] Comment:Desirable LDL: less than 100 mg/dLNear Optimal/Above Optimal LDL: 110- 129 mg/dLBorderline High LDL: 130-159 mg/dLHigh LDL: 160-189 mg/dLVery High LDL: greater than or equal to 190 mg/dL HDL Cholesterol 56 >40 mg/dL [facility] Comment:Desirable HDL: great er than 40 mg/dL Note: This HDL assay may give artificially low results in patients with liver disease. Blood Venous blood specimen / Unknown 04/09/2025 12:48 PM EDT 04/09/2025 4:00 PM EDT Shantelle Mejia MD LAB BLOOD ORDERAB LES Final Result [facility] [address] [place] [phone] * Hepatitis C Antibody with Reflex to HCV, RNA, Quantitative, Real-Time PCR (09/29/2024 8:06 AM EDT) Hepatitis C Antibody Nonreactive Nonreactive [facility] Comment:Antibodies to HCV no t detected; does not exclude early acuteHCV infection. Blood Venous blood specimen / Unknown 09/29/2024 8:06 AM EDT 09/29/2024 11:33 AM EDT us Shantelle Mejia MD LAB BLOOD ORDERAB LES Final Result Performing Organization Address City/[facility] Co de Phone Number [facility] [address] [place] [address] [phone] * HIV-1/2 Antigen and Antibodies, Fourth Generation, with Reflexes (09/29/2024 8:06 AM EDT) HIV AB/AG Nonreactive Nonreactive [facility] Comment:HIV-1 p24 Ag and/or HIV-1/HIV-2 Ab not detected.A test result that is nonreactive does not exclude thepossibility of exposure to or infection with HIV-1 and/orHIV-2. Nonreactive results in this assay for individualswith prior exposure to HIV-1 and/or HIV-2 may be due toantigen and antibody levels that are below the limit ofdetection of this assay.The [employer] HIV Ag/Ab Combo assay result andsupplemental assay results should be interpreted inconjunction with the patient's clinical presentation,history and other laboratory results. If the results areinconsistent with clinical evidence, additional testing issuggested to confirm the result. Blood Venous blood specimen / Unknown 09/29/2024 8:06 AM EDT 09/29/2024 11:33 AM EDT us Shantelle Mejia MD LAB BLOOD ORDERAB LES Final Result Performing Organization Address City/[facility]/ZIP Co de Phone Number [facility] [address] [place] [phone] * BI Mammogram Screening Tomosynthesis Bilateral (07/28/2024 7:20 AM EDT) Anatomical Region Laterality Modality Breast Bilateral Mammography 07/28/2024 7:20 AM EDT Narrative 08/21/2024 12:48 PM EDT [facility] [address] [place] [address] Mammography Report Signed Patient: Cynthia Carreno MR#: [id number] : 1985 Acct:[id number] Age/Sex: 39 / F ADM Date: 07/28/24 Loc: HO.MAMMO Attending Dr: Shantelle Mejia MD Ordering Physician: Shantelle Cunningham MD Re sults: 1Negative Date of Service: 07/28/24 Follow Up: 1 Year From Orig inal Mammogram Procedure(s): MM tomosynthesis screening BI Accession Number(s): [id number] cc: Shantelle Cunningham MD EXAMINATION: MM SCREENING [...] Israel DO in OV> 08/21/24 1245 DD/ 0720 TD/TT: 07/28/24 0730 Nougat Candy Maker Helper: Procedure Note Donotuseinterpreter, Image - 08/21/2024 [facility] [address] [place], [place] [address] Mammography Report Signed Patient: Cynthia CarrenoMR#: [id number] : 1985Acct:[id number] Age/Sex: 39 / FADM Date: 07/28/24 Loc: HO.MAMMO Attending Dr: Shantelle Mejia MD Ordering Physician: Shantelle Cunningham sults: 1Negative Date of Service: 07/28/24Follow Up: 1 Year From Orig ina Mammogram Procedure(s): MM tomosynthesis screening BI Accession Number(s): [id number] cc: Shantelle Cunningham MD EXAMINATION: MM SCREENING [...] Israel DO in OV> 08/21/24 1245 DD/ 0720 TD/TT: 07/28/24 0730 Nougat Candy Maker Helper: Shantelle Mejia MD [facility] BI PROCEDURES Edited Result - Final * HPV mRNA E6/E7 w/Reflex to HPV Genotypes 16, 18/45 (07/10/2023 11:20 AM EDT) HPV nRNA E6/E7 Not Detected Not Detected [facility] Comment:Methodology: Transcr iption-Mediated AmplificationThis assay detects E6/E7 viral messenger RNA (mRNA) from 14high-risk HPV types (16,18,31,33,35,39,45,51,52,56,58,59,66,68).Cervical sources are required for HPV testing.If a vaginal source from a patient who has had atotal hysterectomy with removal of cervix wassubmitted, please contact the testing laboratoryfor alternative testing options.For additional information, please refer [email or web address](This link if provided for information/educational purposes only.)THIS TEST WAS PERFORMED AT:[facility] [place] [phone] LEI MD HPV mRNA E6/E7 [facility] HPV 16 RNA [facility] HPV 18/45 RNA [facility] 07/10/2023 11:2 0 AM EDT 07/11/2023 9:00 AM EDT us Rita Nicholas [facility] CYTOLOGY ORDERABLES F inal Result [facility] [address] [place] [phone] * Pap Smear (07/10/2023) 07/10/2023 07/11/2023 9:0 0 AM EDT Narrative [facility] - 07/27/2023 4:18 PM EDT ----- ------- Name: Cynthia Carreno Age/Sex: 38/F : 1985 Unit#: [id number] Attend Dr: RITA NICHOLAS Re07/10/23 Status: DEP REF Location: [facility] Disch: ----- ------- SPEC : [id number] RECD: 07/11/23 STATUS: ELLIOT GORDON NUM: [id number] MEENAKSHI: 07/10/23- SUBM DR: RITA NICHOLAS [facility] ENTERED: 07/11/23-1399 SP TYPE: Pap Smr OTHR DR: ORDERED: Pap Smear Interpretation Satisfactory for evaluation. Negative for intraepithelial lesion or malignancy. HPV mRNA E6/E7: NOT DETECTED This assay detects E6/E7 viral messenger RNA (mRNA) from 14 high-risk HPV types (16, 18, 31, 33, 35, 39, 45, 51, 52, 56, 58, 59, 66, 68) HPV testing performed by [facility], [place], [place]. See reference laboratory portion of the EMR for entire report. Clinical Information LMP:Unknown date Previous PAP test:2020 Material Received ThinPrep-Cervical ----- ------- Signed (signature on file) Trudy Stokes 07/27/23 1618 ----- ------- END OF REPORT Rita Nicholas [facility] CYTOLOGY ORDERABLES F inal Result [facility] [address] [place] [phone] from Last 3 Months or Most Recently Relevant to Health Maintenance Insurance [facility] HSN FULL DENTAL-[facility] [employer]ICA[facility] LIMITED ADULT DENTAL - HSN FULL (MEDICAID) Care Teams Lead Technician Relationship Specialty Start Date End Date Shantelle Cunningham MD [address] [place] [phone] PCP - General Internal Medicine 06/17/23
[2025-08-06 15:23] LABS: Microalbum/Creatinine Ratio Ur 26.2 ug/mg cr (<30)
== END 2025-08-06 13:32 | disposition home or self-care (01) ==
LOC: HO.HHCLNP 13:31
PROVIDERS: Visit Provider Student in an Organized Health Care Education/Training Program
DX: Z00.00 Encounter for general adult medical examination without abnormal findings (principal)
CPT/HCPCS: 82043; 82570